=== PATIENT | female | born 1965 | race Caucasian/White ===

== ENCOUNTER 2016-08-18 11:16 | Emergency (ER) | payer OTHER ==
[~2016-08-18 11:16] MED LIST: ASPIRIN ADULT L81 MG PO; AUGMENTIN875 MG PO; B-121000 MCG PO; CEFTIN250 MG PO; CLONAZEPAM0.5 MG PO; CLONAZEPAM1 MG PO; COUMADIN5 MG PO; CYMBALTA30 MG PO; DILAUDID2 MG PO; GABAPENTIN600 MG PO; KEPPRA500 MG PO; LAMICTAL25 M1 PO; LIPITOR80 MG PO; MAG6464 MG PO; MS CONTIN15 MG PO; NEURONTIN300 MG PO; NUCYNTA50 MG PO; PHENERGAN EQUIV25 MG PO; RANITIDINE ACID75 MG PO; TAMSULOSIN HCL0.4 MG PO; TIZANIDINE HCL4 M1 PO; TOPROL XL50 MG PO; TRAZODONE HCL50 MG PO; VITAMIN B 650 MG PO
--- NOTE | 2016-08-18 12:23 | ED CLINICAL REPORT ---
Clinical Report - Physicians/Mid Levels [address] [place] [address] 08/18/2016 11:17 Patient: MARJAN CATES Time Seen: 1205; initial patient contact, initial documentation, patient care assumed. Arrived- By private vehicle. Historian- patient and friend. HISTORY OF PRESENT ILLNESS Chief Complaint: ( want iv line out). This started about 3 days ago and is still present. No current or associated symptoms. (went to [facility] for some gi procedure, pic or mid iv line placed in R arm, procedure was not done due to vomiting, pt here demanding we take line out, denies any issues with line, just wants it removed). Similar symptoms previously: None. Recent medical care: The patient was seen recently at another facility in the office. REVIEW OF SYSTEMS No fever. All systems otherwise negative, except as recorded above. PAST HISTORY See nurses notes. PROBLEMS: CVA - Cerebrovascular Accident. Seizure. Changed Mental Status. Diabetes Mellitus. Seizure Disorder. Dental Pain. Dental Caries. Abscess. Strep Throat. UTI - Urinary Tract Infection. Migraine Headache. Intracranial Mass. Folliculitis. [place]. Fall. Contusion. Rib Fracture. Tetanus Status. Pulmonary Embolism. Headache. Neurogenic bladder. LNMP - Last Normal Menstrual Period. Chest Pain. Abnormal EKG. Immunizations. Endometriosis. Fibromyalgia. Neuropathy. Diabetes Mellitus Type 2. TIA - Transient Ischemic Attack. Endocarditis. --11:51 Amy Hussein R.N. CVA - Cerebrovascular Accident [RuleOut]. Angina [RuleOut]. Acute Myocardial Infarction [RuleOut]. --11:51 Amy Hussein R.N. SOCIAL HISTORY Heavy tobacco smoker. History of heavy drug use: marijuana. No alcohol use. No recent travel. Is a local resident. FAMILY HISTORY Negative. ADDITIONAL NOTES The nursing notes have been reviewed with agreement regarding the chief complaint, HPI, ROS, PMH and patient medications and allergies. PHYSICAL EXAM Vital Signs: 08/18/2016 11:44 BP: 116/83. HR: 96. RR: 18. O2 saturation: 100%. Temp: 98.9 F. Have been reviewed as normal and appear to be correct. Appearance: Alert. No acute distress. Eyes: Pupils equal, round and reactive to light. Eyes normal inspection. Neck: Normal inspection. Neck supple. Respiratory: No respiratory distress. Back: Normal inspection. Skin: Skin warm and dry. Normal skin color. No rash. Normal skin turgor. Extremities: Extremities exhibit normal ROM. No lower extremity edema. (mid/pic iv line in R upper arm, site clear, no swelling, no warmth, no erythema). Neuro: Oriented X 3. No motor deficit. No sensory deficit. PROGRESS AND PROCEDURES Course of Care: had discussion with pt re importance of f/u with previous dr at [facility], to have line removed, if needed/wanted, pt not happy, demanding we remove line, and stated she got dressed, came here because we were closer and she wants it out 1248. ELIE Leroy reporting pt upset over dc and demanding line be removed 1258. Spoke to Dr. Engel, custom decorating consultant for GI at [facility], who was also dr that pt had procedure with, pt came in [facility] for pic line placement for colonscopy on Sat, pt was then a no show for her colonscopy, pt was supposed to return later that day to have line removed, pt was no show as well, pt has made no arrangements to have test rescheduled, so Dr. Engel would prefer line to be removed today if we are ok with taking it out, agreed to remove it ELIE Chaves aware and ok to removed line, agreed to send tip for cx if needed 1325. pt now requesting rx pain meds for her leg pain 1340. another nurse now discharging pt, and pt still wants rx pain meds, request denied, but agreed to give one pill here. Patient counseled in person regarding the patient's stable condition and diagnosis. 12:23. Differential Diagnosis: Other possible considerations: infected iv line, cellulitis, noncompliance, substance abuse, sepsis, normal exam. Above considerations are based on history and physical exam. Differential diagnosis was discussed with patient. Disposition: Discharged home in good and unchanged condition. Condition: good and stable. CLINICAL IMPRESSION Normal exam upon presentation, while in the ED and at discharge. PIC line removal. INSTRUCTIONS Warnings: GENERAL WARNINGS: Return or contact your physician immediately if your condition worsens or changes unexpectedly, if not improving as expected, or if other problems arise. Specifically return if problem worsens. Follow-up: Follow up with your doctor in about two days even if well. Call for an appointment. Summary of care provided to patient. Understanding of the discharge instructions verbalized by patient. (Electronically signed by Emerald Salcedo A.R.N.P. 08/18/2016 19:14)
--- NOTE | 2016-08-18 12:23 | ED CLINICAL REPORT ---
Clinical Report - Physicians/Mid Levels [facility] [address] [place] [address] 08/18/2016 11:17 Patient: MARJAN CATES Time Seen: 1205; initial patient contact, initial documentation, patient care assumed. Arrived- By private vehicle. Historian- patient and friend. HISTORY OF PRESENT ILLNESS Chief Complaint: ( want iv line out). This started about 3 days ago and is still present. No current or associated symptoms. (went to [facility] for some gi procedure, pic or mid iv line placed in R arm, procedure was not done due to vomiting, pt here demanding we take line out, denies any issues with line, just wants it removed). Similar symptoms previously: None. Recent medical care: The patient was seen recently at another facility in the office. REVIEW OF SYSTEMS No fever. All systems otherwise negative, except as recorded above. PAST HISTORY See nurses notes. PROBLEMS: CVA - Cerebrovascular Accident. Seizure. Changed Mental Status. Diabetes Mellitus. Seizure Disorder. Dental Pain. Dental Caries. Abscess. Strep Throat. UTI - Urinary Tract Infection. Migraine Headache. Intracranial Mass. Folliculitis. [place]. Fall. Contusion. Rib Fracture. Tetanus Status. Pulmonary Embolism. Headache. Neurogenic bladder. LNMP - Last Normal Menstrual Period. Chest Pain. Abnormal EKG. Immunizations. Endometriosis. Fibromyalgia. Neuropathy. Diabetes Mellitus Type 2. TIA - Transient Ischemic Attack. Endocarditis. --11:51 Amy Hussein R.N. CVA - Cerebrovascular Accident [RuleOut]. Angina [RuleOut]. Acute Myocardial Infarction [RuleOut]. --11:51 Amy Hussein R.N. SOCIAL HISTORY Heavy tobacco smoker. History of heavy drug use: marijuana. No alcohol use. No recent travel. Is a local resident. FAMILY HISTORY Negative. ADDITIONAL NOTES The nursing notes have been reviewed with agreement regarding the chief complaint, HPI, ROS, PMH and patient medications and allergies. PHYSICAL EXAM Vital Signs: 08/18/2016 11:44 BP: 116/83. HR: 96. RR: 18. O2 saturation: 100%. Temp: 98.9 F. Have been reviewed as normal and appear to be correct. Appearance: Alert. No acute distress. Eyes: Pupils equal, round and reactive to light. Eyes normal inspection. Neck: Normal inspection. Neck supple. Respiratory: No respiratory distress. Back: Normal inspection. Skin: Skin warm and dry. Normal skin color. No rash. Normal skin turgor. Extremities: Extremities exhibit normal ROM. No lower extremity edema. (mid/pic iv line in R upper arm, site clear, no swelling, no warmth, no erythema). Neuro: Oriented X 3. No motor deficit. No sensory deficit. PROGRESS AND PROCEDURES Course of Care: had discussion with pt re importance of f/u with previous dr at [facility], to have line removed, if needed/wanted, pt not happy, demanding we remove line, and stated she got dressed, came here because we were closer and she wants it out 1248. ELIE Leroy reporting pt upset over dc and demanding line be removed 1258. Spoke to Dr. Engel, credit collections specialist for GI at [facility], who was also dr that pt had procedure with, pt came in [facility] for pic line placement for colonscopy on Sat, pt was then a no show for her colonscopy, pt was supposed to return later that day to have line removed, pt was no show as well, pt has made no arrangements to have test rescheduled, so Dr. Engel would prefer line to be removed today if we are ok with taking it out, agreed to remove it ELIE Chaves aware and ok to removed line, agreed to send tip for cx if needed 1325. pt now requesting rx pain meds for her leg pain 1340. another nurse now discharging pt, and pt still wants rx pain meds, request denied, but agreed to give one pill here. Patient counseled in person regarding the patient's stable condition and diagnosis. 12:23. Differential Diagnosis: Other possible considerations: infected iv line, cellulitis, noncompliance, substance abuse, sepsis, normal exam. Above considerations are based on history and physical exam. Differential diagnosis was discussed with patient. Disposition: Discharged home in good and unchanged condition. Condition: good and stable. CLINICAL IMPRESSION Normal exam upon presentation, while in the ED and at discharge. PIC line removal. INSTRUCTIONS Warnings: GENERAL WARNINGS: Return or contact your physician immediately if your condition worsens or changes unexpectedly, if not improving as expected, or if other problems arise. Specifically return if problem worsens. Follow-up: Follow up with your doctor in about two days even if well. Call for an appointment. Summary of care provided to patient. Understanding of the discharge instructions verbalized by patient. (Electronically signed by Emerald Salcedo A.R.N.P. 08/18/2016 19:14)
--- NOTE | 2016-08-18 12:24 | ED NURSING NOTES ---
Clinical Report - Nurses [facility] [address] [place] [address] 08/18/2016 11:17 Patient: MARJAN CATES TRIAGE Triage time 11:44 Aug 18 2016. Acuity: LEVEL 3. Chief Complaint: (Patient need midline cath removed.). CHRIS COMA SCORE: [place] Coma Scale: 15- eyes open spontaneously (4); best verbal response- oriented x 4 (5); best motor response- obeys commands (6). --11:54 Amy Hussein R.N. 11:44 08/18/16. BP: 116/83. HR: 96. RR: 18. O2 saturation: 100%. Temp: 98.9 F. Pain level now 8/10. --11:54 Amy Hussein R.N. Weight: 62.5 kg stated. Height/Length: 62 inches Per Patient. BMI: 25.2. --11:53 Amy Hussein R.N. Medications Asa 81mg day. Atorvastatin Calcium Oral 80 mg, at bedtime. Botox Injection, q 3 months . ClonazePAM Oral 1 mg, 3x a day. Cymbalta Oral 60mg day. Gabapentin Oral 1200, 2x a day. LamoTRIgine Oral (Tablet Dispersible 100 mg) 1 tablet, bid. Lasix 40mg daily prn swelling. Oxybutynin Chloride Oral 5 mg, 3x a day. Promethazine HCl Oral 12.5 mg, 4x a day as needed. Ranitidine HCl Oral 150 mg, 2x a day. TiZANidine HCl Oral 4 mg, 2x a day. TraZODone HCl Oral (Tablet 150 mg) 1 tablet, at bedtime. Vitmichel, b-12/ b-6/ . --11:50 Amy Hussein R.N. Allergies Albuterol. Allergen. Codeine. Morphine and Related. Prochlorperazine. Zofran. --11:50 Amy Hussein R.N. History Arrived by private vehicle. Historian: patient. Accompanied by friend. Location: (right arm). She has had no complaints since the treatment. Previous treatment: Previously seen in ED at another facility. ( Patient had line placed in [place] for a GI study and patient didn't get the study done because she started throwing up when taking the prep.). SOCIAL HX: Current every day smoker (states quit two days ago). History of drug use: marijuana. No alcohol use. No infectious disease exposure. SELF HARM ASSESSMENT: A self harm assessment was performed. The patient answered "no" to the question "Have you recently felt down, depressed, or hopeless?" and "Do you have thoughts of harming or killing yourself?". NUTRITIONAL RISK ASSESSMENT: The nutritional risk assessment revealed no deficiencies. FUNCTIONAL ASSESSMENT: Functional assessment: no impairments noted. LEARNING NEEDS ASSESSMENT: The learning needs assessment revealed no barriers. ABUSE ASSESSMENT: Abuse assessment: (yes) The patient was asked "Do you feel safe in your home?". SKIN INTEGRITY ASSESSMENT: Skin integrity risk assessment completed. No skin integrity risk identified. --11:54 Amy Hussein R.N. PROBLEMS: CVA - Cerebrovascular Accident. Seizure. Changed Mental Status. Diabetes Mellitus. Seizure Disorder. Dental Pain. Dental Caries. Abscess. Strep Throat. UTI - Urinary Tract Infection. Migraine Headache. Intracranial Mass. Folliculitis. [place]. Fall. Contusion. Rib Fracture. Tetanus Status. Pulmonary Embolism. Headache. Neurogenic bladder. LNMP - Last Normal Menstrual Period. Chest Pain. Abnormal EKG. Immunizations. Endometriosis. Fibromyalgia. Neuropathy. Diabetes Mellitus Type 2. TIA - Transient Ischemic Attack. Endocarditis. --11:51 Amy Hussein R.N. CVA - Cerebrovascular Accident [RuleOut]. Angina [RuleOut]. Acute Myocardial Infarction [RuleOut]. --11:51 Amy Hussein R.N. Interventions ID and allergy band on patient. --11:54 Amy Hussein R.N. PHYSICAL ASSESSMENT To room via wheelchair. GENERAL / NEURO / PSYCH: Alert. Oriented X 4. Appears in no acute distress. Patient's nutrition appears within normal limits. EXTREMITIES: Extremity pulses are within normal limits. Capillary refill is less than 2 seconds in the extremities. Sensation intact in extremities. ROM of extremities within normal limits. ( Patient has old injury from previous stroke). SKIN: Skin is warm and dry. No signs or symptoms of infection. --11:55 Amy Hussein R.N. ( Patient needs midline cath. removed no staple or sutures.). --11:55 Amy Hussein R.N. NURSING PROGRESS NOTES The plan of care for this patient has been created. Reassurance given. Call light placed in reach. Side rails up x 2. Bed placed in lowest position. Brakes of bed on. --11:56 Amy Hussein R.N. late entry -13:10. ( Midline IV catheter removed per order. Tip is intact, no inflammation or sign of infx.). --13:19 Anastacio Soto R.N. DISPOSITION / DISCHARGE Departure time: 1339. Condition at departure: improved. Discharge instructions provided and reviewed with dry end tester and the patient. Reviewed referral to family practice for followup. Verbalized understanding. Written instructions provided. The patient was discharged home and accompanied by dry end tester. She left the Emergency Department ambulatory and via private vehicle. --14:39 Mariaa Phoenix R.N. 13:35 08/18/16. RR: 18. Additional comments: Pt refused vital signs. --14:39 Mariaa Phoenix R.N. 13:39. ( Pt asked for prescription or medication for her pain, SALON MANAGER declined to give pt anything.). --14:41 Mariaa Phoenix R.N. Locked/Released at 08/18/2016 14:45 by Mariaa Phoenix R.N.
--- NOTE | 2016-08-18 12:24 | ED NURSING NOTES ---
Clinical Report - Nurses [facility] [address] [place] [address] 08/18/2016 11:17 Patient: MARJAN CATES TRIAGE Triage time 11:44 Aug 18 2016. Acuity: LEVEL 3. Chief Complaint: (Patient need midline cath removed.). CHRIS COMA SCORE: [place] Coma Scale: 15- eyes open spontaneously (4); best verbal response- oriented x 4 (5); best motor response- obeys commands (6). --11:54 Amy Hussein R.N. 11:44 08/18/16. BP: 116/83. HR: 96. RR: 18. O2 saturation: 100%. Temp: 98.9 F. Pain level now 8/10. --11:54 Amy Hussein R.N. Weight: 62.5 kg stated. Height/Length: 62 inches Per Patient. BMI: 25.2. --11:53 Amy Hussein R.N. Medications Asa 81mg day. Atorvastatin Calcium Oral 80 mg, at bedtime. Botox Injection, q 3 months . ClonazePAM Oral 1 mg, 3x a day. Cymbalta Oral 60mg day. Gabapentin Oral 1200, 2x a day. LamoTRIgine Oral (Tablet Dispersible 100 mg) 1 tablet, bid. Lasix 40mg daily prn swelling. Oxybutynin Chloride Oral 5 mg, 3x a day. Promethazine HCl Oral 12.5 mg, 4x a day as needed. Ranitidine HCl Oral 150 mg, 2x a day. TiZANidine HCl Oral 4 mg, 2x a day. TraZODone HCl Oral (Tablet 150 mg) 1 tablet, at bedtime. Vitmichel, b-12/ b-6/ . --11:50 Amy Hussein R.N. Allergies Albuterol. Allergen. Codeine. Morphine and Related. Prochlorperazine. Zofran. --11:50 Amy Hussein R.N. History Arrived by private vehicle. Historian: patient. Accompanied by friend. Location: (right arm). She has had no complaints since the treatment. Previous treatment: Previously seen in ED at another facility. ( Patient had line placed in [place] for a GI study and patient didn't get the study done because she started throwing up when taking the prep.). SOCIAL HX: Current every day smoker (states quit two days ago). History of drug use: marijuana. No alcohol use. No infectious disease exposure. SELF HARM ASSESSMENT: A self harm assessment was performed. The patient answered "no" to the question "Have you recently felt down, depressed, or hopeless?" and "Do you have thoughts of harming or killing yourself?". NUTRITIONAL RISK ASSESSMENT: The nutritional risk assessment revealed no deficiencies. FUNCTIONAL ASSESSMENT: Functional assessment: no impairments noted. LEARNING NEEDS ASSESSMENT: The learning needs assessment revealed no barriers. ABUSE ASSESSMENT: Abuse assessment: (yes) The patient was asked "Do you feel safe in your home?". SKIN INTEGRITY ASSESSMENT: Skin integrity risk assessment completed. No skin integrity risk identified. --11:54 Amy Hussein R.N. PROBLEMS: CVA - Cerebrovascular Accident. Seizure. Changed Mental Status. Diabetes Mellitus. Seizure Disorder. Dental Pain. Dental Caries. Abscess. Strep Throat. UTI - Urinary Tract Infection. Migraine Headache. Intracranial Mass. Folliculitis. [place]. Fall. Contusion. Rib Fracture. Tetanus Status. Pulmonary Embolism. Headache. Neurogenic bladder. LNMP - Last Normal Menstrual Period. Chest Pain. Abnormal EKG. Immunizations. Endometriosis. Fibromyalgia. Neuropathy. Diabetes Mellitus Type 2. TIA - Transient Ischemic Attack. Endocarditis. --11:51 Amy Hussein R.N. CVA - Cerebrovascular Accident [RuleOut]. Angina [RuleOut]. Acute Myocardial Infarction [RuleOut]. --11:51 Amy Hussein R.N. Interventions ID and allergy band on patient. --11:54 Amy Hussein R.N. PHYSICAL ASSESSMENT To room via wheelchair. GENERAL / NEURO / PSYCH: Alert. Oriented X 4. Appears in no acute distress. Patient's nutrition appears within normal limits. EXTREMITIES: Extremity pulses are within normal limits. Capillary refill is less than 2 seconds in the extremities. Sensation intact in extremities. ROM of extremities within normal limits. ( Patient has old injury from previous stroke). SKIN: Skin is warm and dry. No signs or symptoms of infection. --11:55 Amy Hussein R.N. ( Patient needs midline cath. removed no staple or sutures.). --11:55 Amy Hussein R.N. NURSING PROGRESS NOTES The plan of care for this patient has been created. Reassurance given. Call light placed in reach. Side rails up x 2. Bed placed in lowest position. Brakes of bed on. --11:56 Amy Hussein R.N. late entry -13:10. ( Midline IV catheter removed per order. Tip is intact, no inflammation or sign of infx.). --13:19 Anastacio Soto R.N. DISPOSITION / DISCHARGE Departure time: 1339. Condition at departure: improved. Discharge instructions provided and reviewed with [place] police sergeant and the patient. Reviewed referral to family practice for followup. Verbalized understanding. Written instructions provided. The patient was discharged home and accompanied by precinct [place] police sergeant. She left the Emergency Department ambulatory and via private vehicle. --14:39 Mariaa Phoenix R.N. 13:35 08/18/16. RR: 18. Additional comments: Pt refused vital signs. --14:39 Mariaa Phoenix R.N. 13:39. ( Pt asked for prescription or medication for her pain, NAIL MAKING MACHINE SETTER declined to give pt anything.). --14:41 Mariaa Phoenix R.N. Locked/Released at 08/18/2016 14:45 by Mariaa Phoenix R.N.
--- NOTE | 2016-08-18 19:15 | ED DISCHARGE INSTRUCTIONS ---
Patient: MARJAN CATES General Instructions [facility] VisitID: [id number] [address] [place] [address] 51y, F Registration Date/Time: 08/18/2016 Normal exam upon presentation, while in the ED and at discharge. PIC line removal. INSTRUCTIONS Warnings: GENERAL WARNINGS: Return or contact your physician immediately if your condition worsens or changes unexpectedly, if not improving as expected, or if other problems arise. Specifically return if problem worsens. Follow-up: Follow up with your doctor in about two days even if well. Call for an appointment. Summary of care provided to patient. Understanding of the discharge instructions verbalized by patient. ADDITIONAL INFORMATION Normal Exam [6Yr - Adult] Based on your or your child's exam today, there are no signs of illness or injury. Be assured that the symptoms that worried you are normal. They do not suggest any illness requiring testing or treatment at this time. Home Care: You (or your child) can return to normal activities and diet. If you or your child have new or unusual symptoms not already discussed today, contact the doctor. Follow Up with the doctor for the next routine appointment. For more information: For childrens health information: www.kidshealth.org For adult health information: www.[facility].org You have been given the following additional information: Normal Exam, (Child) (Adult) (Electronically signed by Emerald Salcedo A.R.N.P. 08/18/2016 19:14)
--- NOTE | 2016-08-18 19:15 | ED MED RECONCILIATION SUMMARY ---
Patient: MARJAN CATES Medication Reconciliation Report [facility] VisitID: [id number] [address] [place] [address] 51y, F Registration Date/Time: 08/18/2016 Weight: 62.5 kg Height/Length: 62 in. BMI: 25.2 ALLERGIES: Albuterol, Allergen, Codeine, Morphine and Related, Prochlorperazine, Zofran The patient's Home Medications are listed below: THE FOLLOWING MEDICATIONS NEED TO BE RECONCILED: Asa 81mg day Atorvastatin Calcium Oral 80 mg, at bedtime Botox Injection, q 3 months ClonazePAM Oral 1 mg, 3x a day Cymbalta Oral 60mg day Gabapentin Oral 1200, 2x a day LamoTRIgine Oral (100 mg) 1 tablet, bid Lasix 40mg daily prn swelling Oxybutynin Chloride Oral 5 mg, 3x a day Promethazine HCl Oral 12.5 mg, 4x a day Ranitidine HCl Oral 150 mg, 2x a day TiZANidine HCl Oral 4 mg, 2x a day TraZODone HCl Oral (150 mg) 1 tablet, at bedtime Vits, b-12/ b-6/ The source(s) of the original Home Medication information: Not obtained. The following Medications were given to the patient in the Emergency Department: None. The following Medications were prescribed to the patient: None.
--- NOTE | 2016-08-18 19:15 | ED DISCHARGE INSTRUCTIONS ---
Patient: MARJAN CATES General Instructions [facility] VisitID: [id number] [address] [place] [address] 51y, F Registration Date/Time: 08/18/2016 Normal exam upon presentation, while in the ED and at discharge. PIC line removal. INSTRUCTIONS Warnings: GENERAL WARNINGS: Return or contact your physician immediately if your condition worsens or changes unexpectedly, if not improving as expected, or if other problems arise. Specifically return if problem worsens. Follow-up: Follow up with your doctor in about two days even if well. Call for an appointment. Summary of care provided to patient. Understanding of the discharge instructions verbalized by patient. ADDITIONAL INFORMATION Normal Exam [6Yr - Adult] Based on your or your child's exam today, there are no signs of illness or injury. Be assured that the symptoms that worried you are normal. They do not suggest any illness requiring testing or treatment at this time. Home Care: You (or your child) can return to normal activities and diet. If you or your child have new or unusual symptoms not already discussed today, contact the doctor. Follow Up with the doctor for the next routine appointment. For more information: For childrens health information: www.kidshealth.org For adult health information: www.[facility].org You have been given the following additional information: Normal Exam, (Child) (Adult) (Electronically signed by Emerald Salcedo A.R.N.P. 08/18/2016 19:14)
--- NOTE | 2016-08-18 19:15 | ED ORDER SUMMARY ---
..... Patient: MARJAN CATES OrderSheet [facility] VisitID: [id number] [address] [place] [address] 51y, F Registration Date/Time: 08/18/2016 ORDER SHEET Weight: 62.5 kg (stated) Allergies: Albuterol, Allergen, Codeine, Morphine and Related, Prochlorperazine, Zofran GENERAL ORDERS: - (remove pic line) (13:05 08/18/2016 HBivens A.R.N.P.) (13:15 Amber R.N.) MEDICATION ORDERS: Hydrocodone-APAP PO 5/325 mg (NOW, HIGH ALERT MEDICATION) (13:43 08/18/2016 HBivens A.R.N.P.) (Cancelled: Patient Left14:44 Francesco R.N.) IV FLUIDS: ORDER SHEET NOTES: [Electronically signed by Mariaa Phoenix R.N. (14:45 08/18/2016)] [Electronically signed by Emerald SalcedoR.N.P. (19:14 08/18/2016)] [Electronically locked/signed by Mariaa Phoenix R.N. (14:45 08/18/2016)]
--- NOTE | 2016-08-18 19:15 | ED MAR SUMMARY ---
..... Medication Administration Record [facility] [address] [place], [place] [id number] Patient: MARJAN CATES Visit ID: [id number] 51y, F Weight: 62.5 kg Height/Length: 62 in BMI: 25.2 ALLERGIES: Albuterol, Allergen, Codeine, Morphine and Related, Prochlorperazine, Zofran
--- NOTE | 2016-08-18 19:15 | ED MED RECONCILIATION SUMMARY ---
Patient: MARJAN CATES Medication Reconciliation Report [facility] VisitID: [id number] [address] [place] [address] 51y, F Registration Date/Time: 08/18/2016 Weight: 62.5 kg Height/Length: 62 in. BMI: 25.2 ALLERGIES: Albuterol, Allergen, Codeine, Morphine and Related, Prochlorperazine, Zofran The patient's Home Medications are listed below: THE FOLLOWING MEDICATIONS NEED TO BE RECONCILED: Asa 81mg day Atorvastatin Calcium Oral 80 mg, at bedtime Botox Injection, q 3 months ClonazePAM Oral 1 mg, 3x a day Cymbalta Oral 60mg day Gabapentin Oral 1200, 2x a day LamoTRIgine Oral (100 mg) 1 tablet, bid Lasix 40mg daily prn swelling Oxybutynin Chloride Oral 5 mg, 3x a day Promethazine HCl Oral 12.5 mg, 4x a day Ranitidine HCl Oral 150 mg, 2x a day TiZANidine HCl Oral 4 mg, 2x a day TraZODone HCl Oral (150 mg) 1 tablet, at bedtime Vits, b-12/ b-6/ The source(s) of the original Home Medication information: Not obtained. The following Medications were given to the patient in the Emergency Department: None. The following Medications were prescribed to the patient: None.
--- NOTE | 2016-08-18 19:15 | ED MAR SUMMARY ---
..... Medication Administration Record [facility] [address] [place], [place] [id number] Patient: MARJAN CATES Visit ID: [id number] 51y, F Weight: 62.5 kg Height/Length: 62 in BMI: 25.2 ALLERGIES: Albuterol, Allergen, Codeine, Morphine and Related, Prochlorperazine, Zofran
--- NOTE | 2016-08-18 19:15 | ED ORDER SUMMARY ---
..... Patient: MARJAN CATES OrderSheet [facility] VisitID: [id number] [address] [place] [address] 51y, F Registration Date/Time: 08/18/2016 ORDER SHEET Weight: 62.5 kg (stated) Allergies: Albuterol, Allergen, Codeine, Morphine and Related, Prochlorperazine, Zofran GENERAL ORDERS: - (remove pic line) (13:05 08/18/2016 HBivens A.R.N.P.) (13:15 Amber R.N.) MEDICATION ORDERS: Hydrocodone-APAP PO 5/325 mg (NOW, HIGH ALERT MEDICATION) (13:43 08/18/2016 HBivens A.R.N.P.) (Cancelled: Patient Left14:44 Francesco R.N.) IV FLUIDS: ORDER SHEET NOTES: [Electronically signed by Mariaa Phoenix R.N. (14:45 08/18/2016)] [Electronically signed by Emerald SalcedoR.N.P. (19:14 08/18/2016)] [Electronically locked/signed by Mariaa Phoenix R.N. (14:45 08/18/2016)]
== END 2016-08-18 13:40 | disposition home or self-care (01) ==
LOC: ED SRH 11:16
DX: Z45.2 Encounter for adjustment and management of vascular access device (principal); M79.621 Pain in right upper arm; F17.210 Nicotine dependence, cigarettes, uncomplicated; Z86.73 Personal history of transient ischemic attack (TIA), and cerebral infarction without residual deficits; E11.9 Type 2 diabetes mellitus without complications

== ENCOUNTER 2016-12-13 16:21 | Observation (INO) | payer OTHER ==
[~2016-12-13] VITALS: Ht 158.8 cm; Wt 67.6 kg
--- NOTE | 2016-12-13 18:02 | DIAGNOSTIC IMAGING REPORT ---
PROCEDURE: XR CHEST 1 VIEW INDICATION: CHEST PAIN TECHNIQUE: Portable AP view (1730 hours). COMPARISON: Compared to chest x-ray on 07/10/2016. FINDINGS: Status post median sternotomy with aortic and mitral valve prosthesis. Heart and mediastinum are normal size. Lungs are clear. Thorax is normal. IMPRESSION: 1. Status post aortic and mitral valve prostheses. 2. Otherwise negative chest.
--- NOTE | 2016-12-13 19:27 | ED CLINICAL REPORT ---
Clinical Report - Physicians/Mid Levels [facility] [address] [place] [address] 12/13/2016 16:21 Patient: MARJAN CATES Time Seen: 16:30. Arrived- By private vehicle. Historian- patient. HISTORY OF PRESENT ILLNESS Chief Complaint: CHEST PAIN. It is described as aching and sharp and it is described as located in other area (lower central chest pain) and the epigastric area. This started at about 1600; Epigastric with radiation to back. lasted 20- 30 minutes. and is still present. It was abrupt in onset. At its maximum, severity described as 8 / 10. When seen in the E.D., severity described as 7 / 10. Modifying factors- worsened by deep breaths. (worse with palpation.). Not relieved by nitroglycerin. The patient has had difficulty breathing and nausea and has experienced diaphoresis. No vomiting. Similar symptoms previously: None. REVIEW OF SYSTEMS No fever, chills, cough, pedal edema or chills. No fever, sore throat, cough, black stools or diarrhea. No nausea, vomiting or skin rash. She has had chest pain, difficulty breathing and abdominal pain. The pain is described as located in the upper abdomen. PAST HISTORY PCP: Dr Mesa - Illness: DVT, Brain Lesion, SBE, Aortic and Mitral valve, DM, Migraine MCKEON, CVA, neurogenic bladder. PROBLEMS: Normal Exam. CVA - Cerebrovascular Accident. Seizure. Changed Mental Status. Diabetes Mellitus. Seizure Disorder. Dental Pain. Dental Caries. Abscess. Strep Throat. UTI - Urinary Tract Infection. Migraine Headache. Intracranial Mass. Folliculitis. [place]. Fall. Contusion. Rib Fracture. Tetanus Status. Pulmonary Embolism. Headache. Neurogenic bladder. Chest Pain. Abnormal EKG. Immunizations. Endometriosis. Fibromyalgia. Neuropathy. Diabetes Mellitus Type 2. TIA - Transient Ischemic Attack. Endocarditis. ADDITIONAL SURGERIES: Aortic valve replacement. Appendectomy. Cholecystectomy. Craniotomy. . Laparoscopy. Mitral valvuloplasty. Medications: Asa 81mg day. Atorvastatin Calcium Oral 80 mg, at bedtime. Botox Injection, q 3 months . ClonazePAM Oral 1 mg, 3x a day. Cymbalta Oral 60mg day. Gabapentin Oral 1200, 2x a day. LamoTRIgine Oral (Tablet Dispersible 100 mg) 1 tablet, bid. Lasix 40mg daily prn swelling. Oxybutynin Chloride Oral 5 mg, 3x a day. Promethazine HCl Oral 12.5 mg, 4x a day as needed. Ranitidine HCl Oral 150 mg, 2x a day. TiZANidine HCl Oral 4 mg, 2x a day. TraZODone HCl Oral (Tablet 150 mg) 1 tablet, at bedtime. Vits, b-12/ b-6/ . Allergies: Albuterol. Allergen. Codeine. Morphine and Related. Prochlorperazine. Zofran. SOCIAL HISTORY Current every day smoker. PHYSICAL EXAM Vital Signs: 12/13/2016 21:03 BP: 98/58. HR: 83. RR: 14. O2 saturation: 98%. Temp: 97.8 F. Pain level now: 03/24. 12/13/2016 20:50 BP: 97/63. HR: 82. RR: 16. O2 saturation: 98%. Pain level now: 03/24. 12/13/2016 20:14 BP: 106/70. HR: 84. RR: 18. O2 saturation: 98%. Pain level now: 02/21. 12/13/2016 20:01 BP: 106/70. HR: 83. RR: 16. O2 saturation: 97%. Pain level now: 02/21. 12/13/2016 19:27 BP: 99/77. HR: 86. RR: 16. O2 saturation: 97%. Pain level now: 02/21. 12/13/2016 17:30 BP: 101/78. HR: 96. RR: 18. O2 saturation: 96%. Pain level now: 12/22. 12/13/2016 17:00 BP: 113/82. HR: 97. RR: 16. O2 saturation: 96%. Pain level now: 12/22. 12/13/2016 16:39 BP: 102/75. HR: 97. RR: 16. O2 saturation: 96%. Temp: 97.9 F. Pain level now: 02/21. Appearance: Alert. (Slow speech). Eyes: No conjunctival findings or scleral icterus. ENT: Pharynx normal. CVS: Heart sounds normal. Respiratory: No respiratory distress. Chest pain reproducible (chest wall tenderness). Breath sounds normal. No decreased air movement, rales, rhonchi or wheezes. Abdomen: Soft and nontender. Bowel sounds normal. Skin: Skin warm. Normal skin color. Extremities: Extremities exhibit normal ROM. No lower extremity edema. Neuro: No cranial nerve deficit. She has had weakness of the left arm (moderate) and left leg (moderate), (pt states that this is old.). No left facial weakness. No sensory deficit. LABS, X-RAYS, AND EKG EKG: Rate: 98. Normal P waves. Normal MILY. Normal QRS complex. Normal axis. Non-specific ST segment / T wave abnormalities. EKG #2: No acute process. No acute ischemia. The study has been independently viewed by me. Chest X-ray: (PROCEDURE: XR CHEST 1 VIEW INDICATION: CHEST PAIN TECHNIQUE: Portable AP view (1730 hours). COMPARISON: Compared to chest x-ray on 07/10/2016. FINDINGS: Status post median sternotomy with aortic and mitral valve prosthesis. Heart and mediastinum are normal size. Lungs are clear. Thorax is normal. IMPRESSION: 1. Status post aortic and mitral valve prostheses. 2. Otherwise negative chest. Electronically Final signed by:Micheal Ayala MD 12/13/2016 5:57:28 PM Technologist: DANIELLE). Laboratory Tests: CBC w Diff: (PARIS: 12/13/2016 17:45) ( MsgRcvd 12/13/2016 18:38) Final results Test Result Flag Units (Reference) WHITE BLOOD COUNT 5.2 K/uL (4.5-11.5) RED BLOOD COUNT 4.70 M/uL (4.00-5.20) HEMOGLOBIN 12.5 gm/dL (12.0-16.0) HEMATOCRIT 37.8 % (36.0-46.0) MEAN CELL VOLUME 80 fL (80-100) MEAN CORPUSCULAR HGB 27 pg (26-34) MEAN CORPUSCULAR HGB CONC 33 g/dL (31-37) RED CELL DISTRIBUTION WIDTH 15.3 H % (11.6-14.8) PLATELET COUNT Test not performed K/uL (150-400) PLATELETS CLUMPED. APPEAR TO BE ADEQUATE IN NUMBER PER SMEARREVIEW. POLY % 60 % (50-75) BAND % 0 % (0-8) LYMPH 35 % (25-40) MONO 4 % (3-14) EOSINOPHIL % 1 % (0-4) BASOPHIL % 0 % (0-2) METAMYELOCYTE % 0 % (0-1) MYELOCYTE 0 % (0-1) OTHER CELL TYPE 0 ANISOCYTOSIS 1+ BNP: (PARIS: 12/13/2016 17:45) ( [facility] 12/13[place] 18:30) Final results Test Result Flag Units (Reference) B-TYPE NATRIURETIC PEPTIDE 65.2 pg/ml (5-100) CHEM 13 PANEL: (PARIS: 12/13/2016 17:45) ( [facility] 12/13/[facility] 18:21) Final results Test Result Flag Units (Reference) GLUCOSE 92 mg/dL (70-110) BUN 9 mg/dL (7-18) CREATININE 0.9 mg/dL (0.6-1.3) Estimated GFR >60 mL/min Estimated GFR- >60 mL/min Note: Persistent reduction over 3 months in eGFR<60 mL/min/1.73 m2 defines CKD. Patients with eGFR values>=60 mL/min/1.73 m2 may also have CKD if evidence ofpersistent proteinuria. Additional information may be foundat www.kidney.org. SODIUM 142 mmol/L (136-145) POTASSIUM 3.9 mmol/L (3.5-5.1) CHLORIDE 103 mmol/L (98-107) CARBON DIOXIDE 28 mmol/L (21-32) CALCIUM 9.4 mg/dL (8.5-10.1) TOTAL PROTEIN 8.4 H g/dL (6.4-8.2) ALBUMIN 4.2 g/dL (3.3-5.0) BILIRUBIN, TOTAL 0.5 mg/dL (0.0-1.0) ALKALINE PHOSPHATASE 137 H U/L (46-116) AST (SGOT) 23 U/L (15-37) ALT (SGPT) 24 U/L (12-78) CPK 122 U/L (24-260) MAGNESIUM 1.9 mg/dL (1.8-2.4) TROPONIN I <0.05 L ng/mL (0.00-1.5) TROPONIN REFERENCE RANGE:<0.1 NEGATIVE0.1-1.5 INDETERMINANT>1.5 POSITIVE . PROGRESS AND PROCEDURES Course of Care: 17:58 12/13/16. Ms Cates is quite complex. She has valvular heart disease, SBE,DVT, CVA. Vascular access is also quite problematic. I will her back joiner's on-call physician to help guide workup, I have set up an intraosseous line should that be necessary, but try for a PICC line to ease workup. We already have blood for diagnostic purposes. 18:26 12/13/16. Two negative EKGs and one negative troponin. 18:45 12/13/16. Dr Murillo will admit. Bedspread Seamer is obtaining an US directed IV. 19:25 12/13/16. Anastacio ED RN was able to get a peripheral IV. Ms Cates had several atypical seizures which were short lived and not treated. She has 2 HOG MAN lesions and a history of a seizure disorder. During her course in ED she had three atypical seizures which consisted of 30-60 seconds of decreased alertness, flexion at waist, knees and elbows. It resolves without a post ictal state 20:59 12/13/16. Patient and friend are strongly advocating for pain and nausea medication. Pt states she can only take promethazine. Small dose ordered as she is somewhat sleepy. Disposition orders written. Disposition: Admitted. CLINICAL IMPRESSION CHEST PAIN ATYPICAL SEIZURES. (Electronically signed by Kojo Dean MD 12/13/2016 22:49)
--- NOTE | 2016-12-13 19:27 | ED CLINICAL REPORT ---
Clinical Report - Physicians/Mid Levels [facility] [address] [place] [address] 12/13/2016 16:21 Patient: MARJAN CATES Time Seen: 16:30. Arrived- By private vehicle. Historian- patient. HISTORY OF PRESENT ILLNESS Chief Complaint: CHEST PAIN. It is described as aching and sharp and it is described as located in other area (lower central chest pain) and the epigastric area. This started at about 1600; Epigastric with radiation to back. lasted 20- 30 minutes. and is still present. It was abrupt in onset. At its maximum, severity described as 8 / 10. When seen in the E.D., severity described as 7 / 10. Modifying factors- worsened by deep breaths. (worse with palpation.). Not relieved by nitroglycerin. The patient has had difficulty breathing and nausea and has experienced diaphoresis. No vomiting. Similar symptoms previously: None. REVIEW OF SYSTEMS No fever, chills, cough, pedal edema or chills. No fever, sore throat, cough, black stools or diarrhea. No nausea, vomiting or skin rash. She has had chest pain, difficulty breathing and abdominal pain. The pain is described as located in the upper abdomen. PAST HISTORY PCP: Dr Mesa - Illness: DVT, Brain Lesion, SBE, Aortic and Mitral valve, DM, Migraine MCKEON, CVA, neurogenic bladder. PROBLEMS: Normal Exam. CVA - Cerebrovascular Accident. Seizure. Changed Mental Status. Diabetes Mellitus. Seizure Disorder. Dental Pain. Dental Caries. Abscess. Strep Throat. UTI - Urinary Tract Infection. Migraine Headache. Intracranial Mass. Folliculitis. [place]. Fall. Contusion. Rib Fracture. Tetanus Status. Pulmonary Embolism. Headache. Neurogenic bladder. Chest Pain. Abnormal EKG. Immunizations. Endometriosis. Fibromyalgia. Neuropathy. Diabetes Mellitus Type 2. TIA - Transient Ischemic Attack. Endocarditis. ADDITIONAL SURGERIES: Aortic valve replacement. Appendectomy. Cholecystectomy. Craniotomy. . Laparoscopy. Mitral valvuloplasty. Medications: Asa 81mg day. Atorvastatin Calcium Oral 80 mg, at bedtime. Botox Injection, q 3 months . ClonazePAM Oral 1 mg, 3x a day. Cymbalta Oral 60mg day. Gabapentin Oral 1200, 2x a day. LamoTRIgine Oral (Tablet Dispersible 100 mg) 1 tablet, bid. Lasix 40mg daily prn swelling. Oxybutynin Chloride Oral 5 mg, 3x a day. Promethazine HCl Oral 12.5 mg, 4x a day as needed. Ranitidine HCl Oral 150 mg, 2x a day. TiZANidine HCl Oral 4 mg, 2x a day. TraZODone HCl Oral (Tablet 150 mg) 1 tablet, at bedtime. Vits, b-12/ b-6/ . Allergies: Albuterol. Allergen. Codeine. Morphine and Related. Prochlorperazine. Zofran. SOCIAL HISTORY Current every day smoker. PHYSICAL EXAM Vital Signs: 12/13/2016 21:03 BP: 98/58. HR: 83. RR: 14. O2 saturation: 98%. Temp: 97.8 F. Pain level now: 03/24. 12/13/2016 20:50 BP: 97/63. HR: 82. RR: 16. O2 saturation: 98%. Pain level now: 03/24. 12/13/2016 20:14 BP: 106/70. HR: 84. RR: 18. O2 saturation: 98%. Pain level now: 02/21. 12/13/2016 20:01 BP: 106/70. HR: 83. RR: 16. O2 saturation: 97%. Pain level now: 02/21. 12/13/2016 19:27 BP: 99/77. HR: 86. RR: 16. O2 saturation: 97%. Pain level now: 02/21. 12/13/2016 17:30 BP: 101/78. HR: 96. RR: 18. O2 saturation: 96%. Pain level now: 12/22. 12/13/2016 17:00 BP: 113/82. HR: 97. RR: 16. O2 saturation: 96%. Pain level now: 12/22. 12/13/2016 16:39 BP: 102/75. HR: 97. RR: 16. O2 saturation: 96%. Temp: 97.9 F. Pain level now: 02/21. Appearance: Alert. (Slow speech). Eyes: No conjunctival findings or scleral icterus. ENT: Pharynx normal. CVS: Heart sounds normal. Respiratory: No respiratory distress. Chest pain reproducible (chest wall tenderness). Breath sounds normal. No decreased air movement, rales, rhonchi or wheezes. Abdomen: Soft and nontender. Bowel sounds normal. Skin: Skin warm. Normal skin color. Extremities: Extremities exhibit normal ROM. No lower extremity edema. Neuro: No cranial nerve deficit. She has had weakness of the left arm (moderate) and left leg (moderate), (pt states that this is old.). No left facial weakness. No sensory deficit. LABS, X-RAYS, AND EKG EKG: Rate: 98. Normal P waves. Normal MILY. Normal QRS complex. Normal axis. Non-specific ST segment / T wave abnormalities. EKG #2: No acute process. No acute ischemia. The study has been independently viewed by me. Chest X-ray: (PROCEDURE: XR CHEST 1 VIEW INDICATION: CHEST PAIN TECHNIQUE: Portable AP view (1730 hours). COMPARISON: Compared to chest x-ray on 07/10/2016. FINDINGS: Status post median sternotomy with aortic and mitral valve prosthesis. Heart and mediastinum are normal size. Lungs are clear. Thorax is normal. IMPRESSION: 1. Status post aortic and mitral valve prostheses. 2. Otherwise negative chest. Electronically Final signed by:Micheal Ayala MD 12/13/2016 5:57:28 PM Technologist: DANIELLE). Laboratory Tests: CBC w Diff: (PARIS: 12/13/2016 17:45) ( MsgRcvd 12/13/2016 18:38) Final results Test Result Flag Units (Reference) WHITE BLOOD COUNT 5.2 K/uL (4.5-11.5) RED BLOOD COUNT 4.70 M/uL (4.00-5.20) HEMOGLOBIN 12.5 gm/dL (12.0-16.0) HEMATOCRIT 37.8 % (36.0-46.0) MEAN CELL VOLUME 80 fL (80-100) MEAN CORPUSCULAR HGB 27 pg (26-34) MEAN CORPUSCULAR HGB CONC 33 g/dL (31-37) RED CELL DISTRIBUTION WIDTH 15.3 H % (11.6-14.8) PLATELET COUNT Test not performed K/uL (150-400) PLATELETS CLUMPED. APPEAR TO BE ADEQUATE IN NUMBER PER SMEARREVIEW. POLY % 60 % (50-75) BAND % 0 % (0-8) LYMPH 35 % (25-40) MONO 4 % (3-14) EOSINOPHIL % 1 % (0-4) BASOPHIL % 0 % (0-2) METAMYELOCYTE % 0 % (0-1) MYELOCYTE 0 % (0-1) OTHER CELL TYPE 0 ANISOCYTOSIS 1+ BNP: (PARIS: 12/13/2016 17:45) ( [facility] [place] 12/13/[place] 18:30) Final results Test Result Flag Units (Reference) B-TYPE NATRIURETIC PEPTIDE 65.2 pg/ml (5-100) CHEM 13 PANEL: (PARIS: 12/13/2016 17:45) ( [facility] [place] 18:21) Final results Test Result Flag Units (Reference) GLUCOSE 92 mg/dL (70-110) BUN 9 mg/dL (7-18) CREATININE 0.9 mg/dL (0.6-1.3) Estimated GFR >60 mL/min Estimated GFR- >60 mL/min Note: Persistent reduction over 3 months in eGFR<60 mL/min/1.73 m2 defines CKD. Patients with eGFR values>=60 mL/min/1.73 m2 may also have CKD if evidence ofpersistent proteinuria. Additional information may be foundat www.kidney.org. SODIUM 142 mmol/L (136-145) POTASSIUM 3.9 mmol/L (3.5-5.1) CHLORIDE 103 mmol/L (98-107) CARBON DIOXIDE 28 mmol/L (21-32) CALCIUM 9.4 mg/dL (8.5-10.1) TOTAL PROTEIN 8.4 H g/dL (6.4-8.2) ALBUMIN 4.2 g/dL (3.3-5.0) BILIRUBIN, TOTAL 0.5 mg/dL (0.0-1.0) ALKALINE PHOSPHATASE 137 H U/L (46-116) AST (SGOT) 23 U/L (15-37) ALT (SGPT) 24 U/L (12-78) CPK 122 U/L (24-260) MAGNESIUM 1.9 mg/dL (1.8-2.4) TROPONIN I <0.05 L ng/mL (0.00-1.5) TROPONIN REFERENCE RANGE:<0.1 NEGATIVE0.1-1.5 INDETERMINANT>1.5 POSITIVE . PROGRESS AND PROCEDURES Course of Care: 17:58 12/13/16. Ms Cates is quite complex. She has valvular heart disease, SBE,DVT, CVA. Vascular access is also quite problematic. I will her translator/interpreter's on-call physician to help guide workup, I have set up an intraosseous line should that be necessary, but try for a PICC line to ease workup. We already have blood for diagnostic purposes. 18:26 12/13/16. Two negative EKGs and one negative troponin. 18:45 12/13/16. Dr Murillo will admit. Tinter Photograph is obtaining an US directed IV. 19:25 12/13/16. Anastacio ED RN was able to get a peripheral IV. Ms Cates had several atypical seizures which were short lived and not treated. She has 2 CAMPGROUND HAND lesions and a history of a seizure disorder. During her course in ED she had three atypical seizures which consisted of 30-60 seconds of decreased alertness, flexion at waist, knees and elbows. It resolves without a post ictal state 20:59 12/13/16. Patient and friend are strongly advocating for pain and nausea medication. Pt states she can only take promethazine. Small dose ordered as she is somewhat sleepy. Disposition orders written. Disposition: Admitted. CLINICAL IMPRESSION CHEST PAIN ATYPICAL SEIZURES. (Electronically signed by Kojo Dean MD 12/13/2016 22:49)
--- NOTE | 2016-12-13 19:27 | ED NURSING NOTES ---
Clinical Report - [facility] [address] [place] [address] 12/13/2016 16:21 Patient: MARJAN CATES TRIAGE Triage time 16:29. Acuity: LEVEL 3. 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 Chest pain is reproducible with palpation. Chest pain improved some after NTG given by medcs.). SEPSIS SCREEN: Sepsis Screen. Negative (no infection suspected/documented). CHRIS COMA SCORE: [place] Coma Scale: 15- eyes open spontaneously (4); best verbal response- oriented x 4 (5); best motor response- obeys commands (6). --17:29 Anastacio Soto R.N. 16:39 12/13/16. BP: 102/75 (regular adult cuff) taken on the left arm, while lying. HR: 97. RR: 16. O2 saturation: 96% on room air. Temp: 97.9 F (oral). Pain level now: 02/21. --17:29 Ansatacio Soto R.N. Weight: 65 kg stated. Height/Length: 62 inches Per Patient. BMI: 26.2. --16:27 Anastacio Soto R.N. Medications Asa 81mg day. Atorvastatin Calcium Oral 80 mg, at bedtime. Botox Injection, q 3 months . ClonazePAM Oral 1 mg, 3x a day. Cymbalta Oral 60mg day. Gabapentin Oral 1200, 2x a day. LamoTRIgine Oral (Tablet Dispersible 100 mg) 1 tablet, bid. Lasix 40mg daily prn swelling. Oxybutynin Chloride Oral 5 mg, 3x a day. Promethazine HCl Oral 12.5 mg, 4x a day as needed. Ranitidine HCl Oral 150 mg, 2x a day. TiZANidine HCl Oral 4 mg, 2x a day. TraZODone HCl Oral (Tablet 150 mg) 1 tablet, at bedtime. Vits, b-12/ b-6/ . --16:32 Simbeck, Anastacio, R.N. Allergies Albuterol. Allergen. Codeine. Morphine and Related. Prochlorperazine. Zofran. --16:32 Anastacio Soto R.N. History Arrived by EMS, and (Medic 46). Historian: EMS and patient. Reports experiencing sweating episodes. No difficulty breathing, nausea or vomiting. Treatment CASH APPLICATION CLERK: (NTG SL, ASA 324mg po, unable to place IV.). SOCIAL HX: No alcohol use or drug use. ABUSE ASSESSMENT: No report of abuse. --17:29 Anastacio Soto R.N. PROBLEMS: Normal Exam. CVA - Cerebrovascular Accident. Seizure. Changed Mental Status. Diabetes Mellitus. Seizure Disorder. Dental Pain. Dental Caries. Abscess. Strep Throat. UTI - Urinary Tract Infection. Migraine Headache. Intracranial Mass. Folliculitis. NE. Fall. Contusion. Rib Fracture. Tetanus Status. Pulmonary Embolism. Headache. Neurogenic bladder. Chest Pain. Abnormal EKG. Immunizations. Endometriosis. Fibromyalgia. Neuropathy. Diabetes Mellitus Type 2. TIA - Transient Ischemic Attack. Endocarditis. --16:32 Anastacio Soto R.N. ADDITIONAL SURGERIES: Aortic valve replacement. Appendectomy. Cholecystectomy. Craniotomy. . Laparoscopy. Mitral valvuloplasty. --16:32 Anastacio Soto R.N. Interventions ID band on patient. To treatment room. --17:29 Anastacio Soto R.N. PHYSICAL ASSESSMENT late entry -16:40. To room via stretcher. GENERAL / NEURO / PSYCH: Alert. Oriented X 4. Appears in pain and anxious. HEENT: Mucous membranes are pink. RESPIRATORY: Respirations not labored. Chest nontender. Breath sounds within normal limits. CVS: Normal sinus rhythm noted. Heart sounds within normal limits. Pulses within normal limits. ( substernal chest pain radiating into her left arm and jaw, pain is reproducible). Capillary refill less than 2 seconds. GI / : Abdomen soft and nontender. EXTREMITIES: No lower extremity edema. SKIN: Skin is warm and dry. Abnormal skin turgor. Skin is non-tender. --17:32 Anastacio Soto R.N. NURSING PROGRESS NOTES late entry -1640. secured entrance monitor, pulse oximeter and NIBP monitor placed on patient; clinical research monitor- Lead II and V1; monitor alarms on. Patient gowned. Head of bed elevated. Two patient identifiers checked. Call light placed in reach. Side rails up x 2. Bed placed in lowest position. Brakes of bed on. Patient ready for evaluation- chart flagged. --18:17 Anastacio Soto R.N. 18:19 12/13/16. EKG time: (1815 PM). EKG was ordered, performed by a tech and shown to the ED physician. --18:19 Albina Ramos 17:00 12/13/16. BP: 113/82. HR: 97. RR: 16. O2 saturation: 96% on room air. Pain level now: 12/22. --18:19 Anastacio Soto R.N. Cardiac rhythm: normal sinus rhythm. --18:19 Anastacio Soto R.N. 17:30 12/13/16. BP: 101/78. HR: 96. RR: 18. O2 saturation: 96% on room air. Pain level now: 12/22. --18:20 Anastacio Soto R.N. late entry -17:30. ( Pt had a petite mal seizure that lasted approx 1 minute, pupils are unequal (left 6mm, right 4mm) not postictal. She was back to her triage baseline afterwards. MD notified.). --18:25 Anastacio Soto R.N. 18:36 12/13/16. ( Seizure pads were placed on bed.). --18:36 Albina Ramos ( Pt had a tonic clonic seizure lasting approx 1 minute, witnessed by RN and MD.). --18:38 Anastacio Soto R.N. Care transferred and report received (Anastacio Solorzano RN). --19:10 Melisa Baron R.N. ( Nurse supp trying to attempt IV access). --19:10 Melisa Baron R.N. 19:20 12/13/2016 Site #1 started via IV in the left antecubital space with an 22g angiocath, with aseptic technique and good blood return; four attempts. Blood drawn: rainbow set. Labeled in the presence of the patient and sent to the lab. Saline lock flushed with 10 mL saline. --19:22 Anastacio Soto R.N. 19:24 12/13/2016 Two (2) unsuccessful IV access attempts of a PIV catheter including the left antecubital space. Applied bandage. --19:24 Barbara Cai R.N. 19:27 12/13/16. BP: 99/77 (regular adult cuff) taken on the right arm. HR: 86 (regular). RR: 16. O2 saturation: 97% on room air. Pain level now: 8/10. Additional comments: left leg. --19:32 Melisa Baron R.N. 19:32 12/13/16. The patient is calm. HEENT: The patient reports left-sided and frontal headache that is moderate in severity and is described as throbbing. RESPIRATORY: No respiratory distress. CVS: The patient reports central chest pain that is mild in severity and described as radiating to the back. Normal sinus rhythm noted. GI / : The patient reports nausea. SKIN: Skin is warm. Skin color within normal limits. ( Friend at patients bedside. Catheter tubing was repositioned on thigh so it was not pulling on urethra.). --19:32 Melisa Baron R.N. 19:57 12/13/2016 Lorazepam (LORazepam) IVP 0.5 mg given over 1 minute(s) via site #1. Allergies verified, confirmed 5 rights and sedative warning given to the patient. IV patency established. IV site checked: no pain, redness, or swelling. IV flushed thoroughly pre- and post-medication administration. IVP given by RN. --19:57 Melisa Baron R.N. 20:12/13/16. ( Patient had another episode, eyes rolled back of head, clinched fists and jaw, leaning forward, feet inward. Then she relaxed, pupils are equal. Patient given warm blanket for comfort). --20:01 Melisa Baron R.N. 20:12/13/16. BP: 106/70 (regular adult cuff) taken on the right arm. HR: 83. RR: 16. O2 saturation: 97% on room air. Pain level now: 8/10. --20:02 Melisa Baron R.N. 20:14 12/13/16. ( Patient was repositioned and given another warm blanket. Breathing is better after reposition.). --20:14 Melisa Baron R.N. 20:14 12/13/16. BP: 106/70 (regular adult cuff) taken on the right arm. HR: 84. RR: 18. O2 saturation: 98% on room air. Pain level now: 02/21. --20:15 Melisa Baron R.N. 20:50 12/13/16. BP: 97/63 (regular adult cuff) taken on the right arm. HR: 82. RR: 16 (regular). O2 saturation: 98% on room air. Pain level now: 03/24. --20:52 Melisa Baron R.N. 20:52 12/13/16. ( Patient still complains of nausea, pain in chest 01/21 and MCKEON 03/24). --20:52 Melisa Baron R.N. 21:14 12/13/2016 Started bag #1 1000 mL IV Fluids IV NS (Saline); at 250 mL/hr over 4 hour(s) via site #1 via IV pump. Allergies verified and confirmed 5 rights. IV patency established. IV site checked: no pain, redness, or swelling. IV flushed thoroughly pre- and post-medication administration. --21:14 Melisa Baron R.N. 21:21 12/13/2016 PROMETHAZINE IVP 6.25 mg given over 1 minute(s) via site #1. Allergies verified and confirmed 5 rights. IV patency established. IV site checked: no pain, redness, or swelling. IV flushed thoroughly pre- and post-medication administration. IVP given by RN. --21:21 Melisa Baron R.N. 21:28 12/13/2016 IV Fluids IV NS Continued: upon transfer at the rate of 250 mL/hr. 950 mL remaining bag #1. IV patency established. IV site checked: no pain, redness, or swelling. IV flushed thoroughly. --21:28 Melisa Baron R.N. 17:15 12/13/16. BP: 113/82 (regular adult cuff) taken on the left arm. HR: 98. RR: 16. O2 saturation: 96% on room air. --23:39 Melisa Baron R.NDelmy 17:45 12/13/16. BP: 101/78 (regular adult cuff) taken on the right arm. HR: 95. RR: 18. O2 saturation: 96% on room air. --23:40 Melisa Baron R.N. 18:00 12/13/16. BP: 107/76 (regular adult cuff) taken on the right arm. HR: 93. RR: 17. O2 saturation: 97%. --23:41 Melisa Baron R.N. 18:15 12/13/16. BP: 110/70 (regular adult cuff) taken on the right arm. HR: 91. RR: 15. O2 saturation: 97% on room air. --23:41 Melisa Baron R.NDelmy 18:30 12/13/16. BP: 105/77. HR: 90. RR: 15. O2 saturation: 98% on room air. --23:42 Melisa Baron R.NDelmy 18:45 12/13/16. HR: 89. RR: 18. O2 saturation: 93% on room air. --23:43 Melisa Baron RDelmyNDelmy 17:00 12/13/16. HR: 87. RR: 14. O2 saturation: 92% on room air. --23:43 Melisa Baron R.N. 19:30 12/13/16. BP: 108/75 (regular adult cuff) taken on the right arm. HR: 86. RR: 13. O2 saturation: 97% on room air. --23:44 Melisa Baron R.NDelmy 19:45 12/13/16. BP: 103/74 (regular adult cuff) taken on the right arm. HR: 84. RR: 13. O2 saturation: 97% on room air. --23:44 Melisa Baron R.NDelmy 20:20 12/13/16. BP: 94/67. HR: 85. RR: 18. O2 saturation: 98% on room air. --23:45 Melisa Baron R.NDelmy 21:15 12/13/16. BP: 97/65 (regular adult cuff) taken on the right arm. HR: 83. RR: 18. O2 saturation: 96% on room air. --23:46 Melisa Baron R.N. DISPOSITION / DISCHARGE 21:08 12/13/16. Condition at departure: unchanged. Report was given to a nurse via a phone call. Report included patient's care, treatment, medications, reviewed medication reconcilliation, and condition (including any recent changes or anticipated changes). All questions were answered. Report was acknowledged. (ELIE Baker). Bed obtained (209). Patient's personal items include, shirt. flip flops, purse in patients possesion, cell phone with devulcanizer charger in purse, medications were sent home with friend Violette Gordon. --21:08 Melisa Baron R.N. 21:03 12/13/16. BP: 98/58 (regular adult cuff) taken on the right arm. HR: 83. RR: 14. O2 saturation: 98% on room air. Temp: 97.8 F (oral). Pain level now: 9/10. --21:08 Melisa Baron R.N. Departure time: 21:28 Dec 13 2016. ( Patient allergic to morphine, relayed this to nurse Olivia that I did not give her the morphine, patient states she can take morphine if benadryl is given with it. Report on this given to ELIE Baker). --21:28 Melisa Baron R.N. Locked/Released at 12/13/2016 23:46 by Melisa Baron R.N.
--- NOTE | 2016-12-13 19:27 | ED ORDER SUMMARY ---
..... Patient: MARJAN CATES OrderSheet [facility] VisitID: [id number] [address] [place] [address] 51y, F Registration Date/Time: 12/13/2016 ORDER SHEET Weight: 65 kg (stated) Allergies: Albuterol, Allergen, Codeine, Morphine and Related, Prochlorperazine, Zofran GENERAL ORDERS: Talent Buyer (Continuous) (CP) (17:12/13/2016 JSimbeck R.N. per protocol) (17:12 JSimbeck R.N.) Oxygen (2 L/min) (NC) (17:12/13/2016 JSimbeck R.N. per protocol) (17:12 JSimbeck R.N.) Pulse oximeter (17:12/13/2016 JSimbeck R.N. per protocol) (17:12 JSimbeck R.N.) EKG - ER Stat (17:12/13/2016 JSimbeck R.N. per protocol) (17:12 JSimbeck R.N.) Talent Buyer (Continuous) (17:12/13/2016 Ivett MENON) (17:28 KHoerner) Chest 2V Urgent (17:12/13/2016 Ivett MENON) (Ack 17:24 Bi) (Cancelled: Other17:25 Ivett MENON) Cardiac Panel Stat (17:12/13/2016 Ivett MENON) (Ack 17:24 Bi) (18:01 KHoerner) BNP Urgent (17:12/13/2016 Ivett MENON) (Ack 17:24 Bi) (18:01 KHoerner) D-Dimer Urgent (17:12/13/2016 Ivett MENON) (Ack 17:24 Bi) (18:01 SONIAoerner) Pulse oximeter (17:12/13/2016 Ivett MENON) (17:28 SONIAoerner) EKG - ER Stat (17:12/13/2016 Ivett MENON) (Cancelled: Duplicate Order17:24 Bi) Chest 1V Urgent (17:12/13/2016 Ivett MENON) (Ack 17:28 Bi) (17:33 JSimbeck R.N.) - (PIC LINE) (17:43 12/13/2016 Ivett MENON) (Ack 17:46 Bi) (18:02 Bi) EKG - ER Repeat Stat (18:02 12/13/2016 Ivett MENON) (18:16 Bi) UA-Culture if indicated Urgent (18:21 12/13/2016 Ivett MENON) (Ack 18:22 Bi) (19:25 JSanders R.N.) -- (Keppra level) (19:36 12/13/2016 Ivett MENON) (Ack 19:40 uller) (19:50 JSanders R.N.) MEDICATION ORDERS: Promethazine IV 12.5 mg (NOW) (20:55 12/13/2016 Ivett MENON) (Ack 20:56 CARMINEanders R.N.) (Cancelled: Other20:59 Ivett MENON) Promethazine IV 6.25 MG (NOW) (20:59 12/13/2016 Ivett MENON) (Ack 21:08 JSanders R.N.) (21:21 JSanders R.N.) IV FLUIDS: IV Saline Lock (17:22 12/13/2016 Ivett MENON) (Ack 19:09 JSanders R.N.) (19:22 CARMINEimbeck R.N.) LORazepam IV 0.5 mg (NOW) (19:51 12/13/2016 Ivett MENON) (Ack 19:51 CARMINEanders R.N.) (19:57 CARMINEanders R.N.) IV NS : initial bolus none -, then 250 mL/hr for 2h (NOW); Urgent (20:56 12/13/2016 Ivett MENON) (Ack 20:57 JSanders R.N.) (21:14 JSanders R.N.) Morphine IV 2 mg (NOW) (20:56 12/13/2016 Ivett MENON) (Ack 20:57 CARMINEanders R.N.) (Cancelled: [id number] CARMINEanders R.N.) ORDER SHEET NOTES: [Electronically signed by Kojo Dean MD (22:49 12/13/2016)] [Electronically signed by Melisa Baron R.N. (23:46 12/13/2016)] [Electronically locked/signed by Melisa Baron R.N. (23:46 12/13/2016)]
--- NOTE | 2016-12-13 19:27 | ED ORDER SUMMARY ---
..... Patient: MARJAN CATES OrderSheet [facility] VisitID: [id number] [address] [place] [address] 51y, F Registration Date/Time: 12/13/2016 ORDER SHEET Weight: 65 kg (stated) Allergies: Albuterol, Allergen, Codeine, Morphine and Related, Prochlorperazine, Zofran GENERAL ORDERS: Montessori Toddler Teacher (Continuous) (CP) (17:12/13/2016 JSimbeck R.N. per protocol) (17:12 JSimbeck R.N.) Oxygen (2 L/min) (NC) (17:12/13/2016 JSimbeck R.N. per protocol) (17:12 JSimbeck R.N.) Pulse oximeter (17:12/13/2016 JSimbeck R.N. per protocol) (17:12 JSimbeck R.N.) EKG - ER Stat (17:12/13/2016 JSimbeck R.N. per protocol) (17:12 JSimbeck R.N.) Montessori Toddler Teacher (Continuous) (17:12/13/2016 Ivett MENON) (17:28 KHoerner) Chest 2V Urgent (17:12/13/2016 Ivett MENON) (Ack 17:24 Bi) (Cancelled: Other17:25 Ivett MENON) Cardiac Panel Stat (17:12/13/2016 Ivett MENON) (Ack 17:24 Bi) (18:01 KHoerner) BNP Urgent (17:12/13/2016 Ivett MENON) (Ack 17:24 Bi) (18:01 KHoerner) D-Dimer Urgent (17:12/13/2016 Ivett MENON) (Ack 17:24 Bi) (18:01 SONIAoerner) Pulse oximeter (17:12/13/2016 Ivett MENON) (17:28 SONIAoerner) EKG - ER Stat (17:12/13/2016 Ivett MENON) (Cancelled: Duplicate Order17:24 Bi) Chest 1V Urgent (17:12/13/2016 Ivett MENON) (Ack 17:28 Bi) (17:33 JSimbeck R.N.) - (PIC LINE) (17:43 12/13/2016 Ivett MENON) (Ack 17:46 Bi) (18:02 Bi) EKG - ER Repeat Stat (18:02 12/13/2016 Ivett MENON) (18:16 Bi) UA-Culture if indicated Urgent (18:21 12/13/2016 Ivett MENON) (Ack 18:22 Bi) (19:25 JSanders R.N.) -- (Keppra level) (19:36 12/13/2016 Ivett MENON) (Ack 19:40 uller) (19:50 JSanders R.N.) MEDICATION ORDERS: Promethazine IV 12.5 mg (NOW) (20:55 12/13/2016 Ivett MENON) (Ack 20:56 CARMINEanders R.N.) (Cancelled: Other20:59 Ivett MENON) Promethazine IV 6.25 MG (NOW) (20:59 12/13/2016 Ivett MENON) (Ack 21:08 JSanders R.N.) (21:21 JSanders R.N.) IV FLUIDS: IV Saline Lock (17:22 12/13/2016 Ivett MENON) (Ack 19:09 JSanders R.N.) (19:22 CARMINEimbeck R.N.) LORazepam IV 0.5 mg (NOW) (19:51 12/13/2016 Ivett MENON) (Ack 19:51 CARMINEanders R.N.) (19:57 CARMINEanders R.N.) IV NS : initial bolus none -, then 250 mL/hr for 2h (NOW); Urgent (20:56 12/13/2016 Ivett MENON) (Ack 20:57 JSanders R.N.) (21:14 JSanders R.N.) Morphine IV 2 mg (NOW) (20:56 12/13/2016 Ivett MENON) (Ack 20:57 CARMINEanders R.N.) (Cancelled: [id number] CARMINEanders R.N.) ORDER SHEET NOTES: [Electronically signed by Kojo Dean MD (22:49 12/13/2016)] [Electronically signed by Melisa Baron R.N. (23:46 12/13/2016)] [Electronically locked/signed by Melisa Baron R.N. (23:46 12/13/2016)]
[2016-12-13 21:46] VITALS: BP 89/58
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
--- NOTE | 2016-12-13 23:01 | NUR ---
PT IS AGGITATED ABOUT NOT BEING GIVEN IV PAIN MEDS. PT SPOKE CLEARLY, NO SLURRING AND WAS ABLE TO BRACE HERSELF UP ON ELBOWS. WCTM.
--- NOTE | 2016-12-13 23:46 | ED MED RECONCILIATION SUMMARY ---
Patient: MARJAN CATES Medication Reconciliation Report [facility] VisitID: [id number] [address] [place] [address] 51y, F Registration Date/Time: 12/13/2016 Weight: 65 kg Height/Length: 62 in. BMI: 26.2 ALLERGIES: Albuterol, Allergen, Codeine, Morphine and Related, Prochlorperazine, Zofran The patient's Home Medications are listed below: THE FOLLOWING MEDICATIONS NEED TO BE RECONCILED: Asa 81mg day Atorvastatin Calcium Oral 80 mg, at bedtime Botox Injection, q 3 months ClonazePAM Oral 1 mg, 3x a day Cymbalta Oral 60mg day Gabapentin Oral 1200, 2x a day LamoTRIgine Oral (100 mg) 1 tablet, bid Lasix 40mg daily prn swelling Oxybutynin Chloride Oral 5 mg, 3x a day Promethazine HCl Oral 12.5 mg, 4x a day Ranitidine HCl Oral 150 mg, 2x a day TiZANidine HCl Oral 4 mg, 2x a day TraZODone HCl Oral (150 mg) 1 tablet, at bedtime Vits, b-12/ b-6/ The source(s) of the original Home Medication information: Not obtained. The following Medications were given to the patient in the Emergency Department: Lorazepam [IVP] IVP 0.5 mg, administered: 12/13/2016 7:57:00 PM IV NS IV Fluids bolus 0, then 250 mL/hr, administered: 12/13/2016 9:14:00 PM PROMETHAZINE [IVP] IVP 6.25 mg, administered: 12/13/2016 9:21:00 PM The following Medications were prescribed to the patient: None.
--- NOTE | 2016-12-13 23:46 | ED MAR SUMMARY ---
..... Medication Administration Record [facility] [address] [place] [place] [address] Patient: MARJAN CATES Visit ID: [id number] 51y, F Weight: 65.0 kg Height/Length: 62 in BMI: 26.2 ALLERGIES: Albuterol, Allergen, Codeine, Morphine and Related, Prochlorperazine, Zofran Given 19:57 12/13/2016 Melisa Baron R.N. Medication Administered: LORAZEPAM [IVP] (LORAZEPAM), Dose: 0.5 mg IVP over 1 minute(s), Site: #1 left AC. Medication Ordered: LORazepam IV 0.5 mg (NOW). Start 21:14 12/13/2016 Melisa Baron R.N., Continued Upon Transfer 21:28 12/13/2016 Melisa Baron R.N. Medication Administered: IV NS (SALINE), Dose: IV Fluids over 4 hour(s), Rate: 250 mL/hr, Dispensed: 1000 mL bag, Site: #1 left AC. Medication Ordered: IV NS : initial bolus none -, then 250 mL/hr for 2h (NOW); Urgent. Given 21:21 12/13/2016 Melisa Baron R.N. Medication Administered: PROMETHAZINE [IVP], Dose: 6.25 mg IVP over 1 minute(s), Site: #1 left AC. Medication Ordered: Promethazine IV 6.25 MG (NOW).
--- NOTE | 2016-12-13 23:46 | ED DISCHARGE INSTRUCTIONS ---
Patient: MARJAN CATES General Instructions [facility] VisitID: [id number] [address] [place] [address] 51y, F Registration Date/Time: 12/13/2016 CHEST PAIN ATYPICAL SEIZURES. (Electronically signed by Kojo Dean MD 12/13/2016 22:49)
--- NOTE | 2016-12-13 23:46 | ED MAR SUMMARY ---
..... Medication Administration Record [facility] [address] [place] [address] Patient: MARJAN CATES Visit ID: [id number] 51y, F Weight: 65.0 kg Height/Length: 62 in BMI: 26.2 ALLERGIES: Albuterol, Allergen, Codeine, Morphine and Related, Prochlorperazine, Zofran Given 19:57 12/13/2016 Melisa Baron R.N. Medication Administered: LORAZEPAM [IVP] (LORAZEPAM), Dose: 0.5 mg IVP over 1 minute(s), Site: #1 left AC. Medication Ordered: LORazepam IV 0.5 mg (NOW). Start 21:14 12/13/2016 Melisa Baron R.N., Continued Upon Transfer 21:28 12/13/2016 Melisa Baron R.N. Medication Administered: IV NS (SALINE), Dose: IV Fluids over 4 hour(s), Rate: 250 mL/hr, Dispensed: 1000 mL bag, Site: #1 left AC. Medication Ordered: IV NS : initial bolus none -, then 250 mL/hr for 2h (NOW); Urgent. Given 21:21 12/13/2016 Melisa Baron R.N. Medication Administered: PROMETHAZINE [IVP], Dose: 6.25 mg IVP over 1 minute(s), Site: #1 left AC. Medication Ordered: Promethazine IV 6.25 MG (NOW).
--- NOTE | 2016-12-13 23:46 | ED MED RECONCILIATION SUMMARY ---
Patient: MARJAN CATES Medication Reconciliation Report [facility] VisitID: [id number] [address] [place] [address] 51y, F Registration Date/Time: 12/13/2016 Weight: 65 kg Height/Length: 62 in. BMI: 26.2 ALLERGIES: Albuterol, Allergen, Codeine, Morphine and Related, Prochlorperazine, Zofran The patient's Home Medications are listed below: THE FOLLOWING MEDICATIONS NEED TO BE RECONCILED: Asa 81mg day Atorvastatin Calcium Oral 80 mg, at bedtime Botox Injection, q 3 months ClonazePAM Oral 1 mg, 3x a day Cymbalta Oral 60mg day Gabapentin Oral 1200, 2x a day LamoTRIgine Oral (100 mg) 1 tablet, bid Lasix 40mg daily prn swelling Oxybutynin Chloride Oral 5 mg, 3x a day Promethazine HCl Oral 12.5 mg, 4x a day Ranitidine HCl Oral 150 mg, 2x a day TiZANidine HCl Oral 4 mg, 2x a day TraZODone HCl Oral (150 mg) 1 tablet, at bedtime Vits, b-12/ b-6/ The source(s) of the original Home Medication information: Not obtained. The following Medications were given to the patient in the Emergency Department: Lorazepam [IVP] IVP 0.5 mg, administered: 12/13/2016 7:57:00 PM IV NS IV Fluids bolus 0, then 250 mL/hr, administered: 12/13/2016 9:14:00 PM PROMETHAZINE [IVP] IVP 6.25 mg, administered: 12/13/2016 9:21:00 PM The following Medications were prescribed to the patient: None.
--- NOTE | 2016-12-13 23:46 | ED DISCHARGE INSTRUCTIONS ---
Patient: MARJAN CATES General Instructions [facility] VisitID: [id number] [address] [place] [address] 51y, F Registration Date/Time: 12/13/2016 CHEST PAIN ATYPICAL SEIZURES. (Electronically signed by Kojo Dean MD 12/13/2016 22:49)
[2016-12-14] VITALS (10 sets, daily range): BP systolic 69–109; BP diastolic 42–76
--- NOTE | 2016-12-14 03:41 | NUR ---
DR. AVENDANO PRESENT ON UNIT. INFORMED OF PATIENTS VSS AND LOW BP, AND STATUS. NO NEW ORDERS GIVEN. WCTM.
[2016-12-14] MEDS ORDERED: CLONAZEPAM1 MG PO (03:47)
[2016-12-14] MEDS ORDERED: BOTOX100 UNIT (03:48)
[2016-12-14] MEDS ORDERED: LASIX40 MG PO (03:49)
[2016-12-14] MEDS ORDERED: TRAZODONE HCL50 MG PO (03:52)
[2016-12-14] MEDS ORDERED: DITROPAN EQUIVAL5 MG PO (03:56)
--- NOTE | 2016-12-14 04:17 | NUR ---
PT SLEEPING WELL OVERNIGHT. NO DISTRESS NOTED. VSS. BP IS LOW, AND MD IS AWARE OF BP. NO SEIZURE ACTIVITY NOTED. SEIZURE PRECAUTIONS IN PLACE. WILSON INTACT AND DRAINING. IVF INFUSING PER MD ORDER. CALL LIGHT IN REACH, BED IN LOWEST POSITION, WCTM.
--- NOTE | 2016-12-14 05:18 | History & Physical Report ---
Information Source Information Source: Self Reliability: Fair History Chief Complaint chest pain History of Present Illness The patient is a 50-year-old white female with a significant past medical history of endocarditis status post aortic/mitral valve replacement, CVA, seizure disorder, chronic pain, hypercholesterolemia, who presented to [facility] emergency department secondary to chest pain that she has been experiencing for the past 1 day. Patient claims that the pain appeared while she was lying in bed and she had never experienced this type of pain before. She descibes the pain as epigastric, with a deep gnawing sensation that radiated to her back. Patient states the pain comes and goes and has no exacerbating or alleviating factors. Patient has no other complaints including shortness of breath, pain on exertion, pain on movement or palpitations. Patient History 1. Chest pain 2. Generalized anxiety disorder 3. Cerebrovascular disease 4. UTI (urinary tract infection) 5. Hypertension 6. Neuropathy 7. Seizure disorder Social History Patient currently lives at home. She claims she lives alones however she stated to nursing that she has a caregiver. Patient stopped smoking 1 month ago and has a 35 pack year history, Patient does not drink and claims to not use any illicit substances. Family History MOTHER Diabetes FATHER Diabetes Advance Directive None Medications and Allergies Medications Home Medications aspirin 81 mg clonazepam 1 mg tid cyanocolbumin duloxetin 20 mg furosemide 40 mg daily gabapentin 1200 mg bid lamicatl 125 mg daily keppra 500 mg bid ditropan 5 mg tid promethazine 25 mg qhs tamsulosin .4 mg trazadone 150 mg qhs Current Medications Sig/Jb Start time Last Medication Dose Route Stop Time Status Admin Atorvastatin Calcium 80 MG QPM 12/14 1800 AC PO Aspirin 81 MG DAILY 12/14 899 AC PO Duloxetine HCl 60 MG DAILY 12/14 0900 AC PO Tamsulosin HCl 0.4 MG DAILY 12/14 0900 AC PO Sucralfate 1 GM ACHS 12/14 0730 AC PO Ceftriaxone Sodium/ 50 ML Q24H 12/14 0000 AC 12/13 Dextrose IV 2344 Diphenhydramine HCl 25 MG ONCE 12/13 2244 AC PO Lorazepam 1 MG Q4H PRN 12/13 2245 AC IV Morphine Sulfate 7.5 MG Q6H PRN 12/13 2245 AC PO Pantoprazole Sodium 40 MG BID 12/13 224 AC IV Baclofen 10 MG TID 12/13 2199 AC 12/13 PO 2203 Lamotrigine 100 MG BID 12/13 2099 AC 12/13 PO 2203 Levetiracetam 1,000 MG BID 12/13 2099 AC 12/13 PO 2203 Promethazine HCl 25 MG QHS 12/13 2099 AC 12/13 PO 220 Acetaminophen 650 MG Q6H PRN 12/13 2014 AC PO Clonazepam 0.5 MG TID PRN 12/13 2014 AC PO Gabapentin 600 MG TID PRN 12/13 2014 AC PO Trazodone HCl 50 MG QHS PRN 12/13 2014 AC 12/13 PO 220 Allergies Coded Allergies: Codeine (01/26/14) Droperidol (01/26/14) Metoclopramide (01/26/14) Morphine (01/25/14) Ondansetron (From ZOFRAN) (09/17/14) Phenothiazines (01/26/14) Prochlorperazine (01/26/14) Pseudoephedrine (From SUDAFED) (03/20/16) Review of Systems Constitutional Denies: Fever, Chills, Sweats, Weakness, Malaise, Other. Eyes Denies: Pain, Vision Change, Conjunctival Inflammation, Eyelid Inflammation, Redness, Other. ENT Denies: Ear Pain, Ear Discharge, Nose Pain, Nasal Discharge, Nasal Congestion, Mouth Pain, Mouth Swelling, Throat Pain, Throat Swelling, Other. Respiratory Denies: Cough, Dry, SOB w/exertion, Wheezing, Hemoptysis, Pleuritic Pain, Sputum , Other. Cardiovascular Chest Pain. Denies: Palpitations, Orthopnea, PND, Edema, Light-headedness, Other. Gastrointestinal Denies: Nausea, Vomiting, Abdominal Pain, Diarrhea, Constipation, Melena, Hematochezia, Other. Genitourinary Denies: Dysuria, Frequency, Incontinence, Hematuria, Retention, Other. Musculoskeletal Denies: Neck Pain, Shoulder Pain, Arm Pain, Back Pain, Hand Pain, Leg Pain, Foot Pain, Other. Skin Denies: Rash, Lesions, Jaundice, Bruising, Other. Neurological Denies: Weakness, Numbness, Incoordination, Change in speech, Confusion, Seizures, Other. Physical Exam Vital Signs / I&Os Vital Signs Date Time Temp Pulse Resp B/P Pulse O2 O2 Flow FiO2 Ox Delivery Rate 06/02 0216 98.6 73 16 83/49 97 Room Air 12/14 0210 Room Air 12/13 2146 97.9 79 16 89/58 97 Room Air I&O 12/13 0800 12/13 1600 12/14 0000 Intake Total 0 Output Total 650 Balance -650 General Appearance Alert, Oriented X3, No acute distress HEENT Atraumatic, Moist mucous membranes Lungs Clear to auscultation, Normal air movement Neck Supple, No masses, No thyromegaly Cardiovascular Regular rate and rhythm, Normal S1 and S2, - systolic ejection murmur Abdomen Soft, No tenderness Extremities No clubbing, No edema, Normal pulses, - strength is diminished on the left side Skin No Breakdown Neurological Normal speech, Normal tone, Cranial nerves intact Psych/Mental Status Mood normal LAB Results Laboratory Tests 12/13 12/13 12/13 12/13 1745 1745 1755 1920 Chemistry Plasma Sodium (136 - 145 mmol/L) 142 Plasma Potassium (3.5 - 5.1 mmol/L) 3.9 Plasma Chloride (98 - 107 mmol/L) 103 CO2 (Enzymatic) (21 - 32 mmol/L) 28 BUN (7 - 18 mg/dL) 9 Creatinine (0.6 - 1.3 mg/dL) 0.9 Est GFR ( Amer) (mL/min) >60 Est GFR (Non-Af Amer) (mL/min) >60 Glucose (70 - 110 mg/dL) 92 Plasma Calcium (8.5 - 10.1 mg/dL) 9.4 Plasma Magnesium (1.8 - 2.4 mg/dL) 1.9 Total Bilirubin (0.0 - 1.0 mg/dL) 0.5 AST (15 - 37 U/L) 23 ALT (12 - 78 U/L) 24 Alkaline Phosphatase (46 - 116 U/L) 137 Creatine Kinase (24 - 260 U/L) 122 Troponin (0.00 - 1.5 ng/mL) <0.05 B-Natriuretic Peptide (5 - 100 pg/ml) 65.2 Total Protein (6.4 - 8.2 g/dL) 8.4 Albumin (3.3 - 5.0 g/dL) 4.2 Coagulation D-Dimer, Quantitative (0.27 - 0.52 ug/mLFEU) 0.30 Hematology WBC (4.5 - 11.5 K/uL) 5.2 RBC (4.00 - 5.20 M/uL) 4.70 Hgb (12.0 - 16.0 gm/dL) 12.5 Hct (36.0 - 46.0 %) 37.8 MCV (80 - 100 fL) 80 MCH (26 - 34 pg) 27 RDW (11.6 - 14.8 %) 15.3 Neut % (Auto) (50 - 75 %) 60 Lymph % (Auto) (25 - 40 %) 35 [place] % (Auto) (3 - 14 %) 4 Eos % (Auto) (0 - 4 %) 1 Baso % (Auto) (0 - 2 %) 0 Band Neutrophils % (0 - 8 %) 0 Metamyelocytes % (0 - 1 %) 0 Myelocytes (0 - 1 %) 0 Other Cell Type 0 Plt Count, EDTA (150 - 400 K/uL) TNP Anisocytosis (manual) 1+ PUBS MCHC (31 - 37 g/dL) 33 Toxicology Plasma/Serum Ethyl Alc (3 - 10 mg/dL) <3 12/13 1924 Toxicology Levetiracetam Pending Urines Urine Color YELLOW Urine Appearance SL CLOUDY Urine pH (5.0 - 8.0) 5.5 Ur Specific Lee (1.010 - 1.030) 1.010 Urine Protein (NEGATIVE) NEGATIVE Urine Ketones (NEGATIVE) NEGATIVE Urine Blood (NEGATIVE) 3+ Urine Nitrite (NEGATIVE) POSITIVE Urine Bilirubin (NEGATIVE) NEGATIVE Urine Urobilinogen (0.2 - 1.0 EU/dL) 0.2 Ur Leukocyte Esterase (NEGATIVE) POSITIVE Urine RBC (0 - 1 rbc/hpf) 10-25 Urine WBC (0 - 1 wbc/hpf) 10-15 Ur Epithelial Cells (0 - 5 EPI/hpf) 0-1 Urine Bacteria (NONE SEEN) MODERATE (2+ TO 3+) Urine Glucose (NEGATIVE) NEGATIVE Urine Comment CULTURE INDICATED Microbiology Date/Time Procedure - Status Source Growth 12/13 1924 Urine Culture - RECD URINE CC Assessment and Plan Problem List 1. Chest pain Plan - patient does not have a cardiac etiology behind the chest pain - no evidence of troponemia present - eKg has been normal X 2 - given presentation and symptoms patient most likely has acid reflux - will switch to bid protonix and see if symptoms are alleviated - will monitor patient on tele 2. CVA (cerebral vascular accident) Plan - history of cva - left sided deficits - will c/w aspirin and statin 3. UTI (urinary tract infection) Plan - pt has a chronic indwelling eaton - currently patietn is experiencing some degree of pain during urination and feels the catheter which is atypical - UA is positive - will treat with Ceftriaxone 1 gram daily 4. Seizure disorder Status Chronic Onset Date Unknown Plan - pt has a known seizure disorder - pt apparently had a seizure in the ER however resolved spontaneously - will c/w anti epileptics - ativan on board for seizure prevention 5. 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 Aortic valve replaced Plan - pt has a history of aortic valve replacement - unsure to as why patient is not on any anti-coagulation - will address this with the patient
--- NOTE | 2016-12-14 07:06 | NUR ---
PT HAD $ 400 DOLLAR IN [place]. PT'S MONEY PLACED IN A BELONGINGS BAG AND SENT TO SAFE THIS AM. PT RESTING. NO DISTRESS.
--- NOTE | 2016-12-14 15:34 | NUR ---
NUTRITION ASSESSMENT: S: Pt admitted with dx/o chest pain, atypical seizures. PMH includes: chest pain, anxiety disorder, cebrovascular disease, UTI, HTN, neuropathy, seizure disorder. Spoke with nsg, pt is not exhibiting any chewing or swallowing problems and po intake is good. O: Diet Rx: Low sodium Regular Thin NKFA Wts: 67.6 kg Ht: 62.5" IBW: 60-67 kg BMI: 27 Est Kcals: ~9479-0028 kcals per day Est Pro: ~60-70 g per day Est Fluids: ~ 2.0 L per day Meds: Rev'd Labs: Rev'd Skin: Hiro Score 17; no open areas noted or reported. A: Pt po intake appears fair to poor, low sodium diet in place and appears appropriate given hx above. REv'd meds and labs. BMI; overweight, however no weight loss desired at this time until pt medically stable (see IBW ranges avove). P: Continue same
--- NOTE | 2016-12-14 17:20 | Progress Note ---
Subjective General Note Date: December 14, 2016 Admission Date: December 13, 2016 Hospital Day: 2 PCP: [facility] Status: Observation, ACU Advanced Directive: CODE Room: 209-B Admission History: The patient is a 51-year-old white female with a significant past medical history of seizure disorder, pseudoseizures, valvular heart disease status post mitral valve/aortic valve replacement, generalized anxiety disorder, urinary retention, peripheral neuropathy, hypertension, who presented to [facility] emergency department on the day of admission secondary to complaints of chest discomfort. [facility] ER evaluation was consistent with chest pain rule out reflux/GI origin versus ACS. Secondary to the above, the patient was admitted by Doroteo Murillo M.D. for further evaluation and treatment. For other history present illness, past medical history, family history, social history, review of systems, and admission physical examination please see the patient's history and physical examination and ER visit note in the patient's medical record. Subjective: The patient states her chest pain is significantly improved today. Patient placed on PPI. Previous heart catheter 2 years ago was unremarkable. We will attempt to obtain further records regarding patient's previous cardiac surgery/ cardiac catheterization Patient requests: None Medications and Allergies Medications Current Medications Sig/Jb Start time Last Medication Dose Route Stop Time Status Admin Tolterodine Tartrate 2 MG DAILY 12/15 0900 AC PO Ceftriaxone Sodium/ 50 ML QHS 12/14 2100 AC Dextrose IV Trazodone HCl 150 MG QHS 12/14 2100 AC PO Atorvastatin Calcium 80 MG QPM 12/14 1800 AC PO Aspirin 81 MG DAILY 12/14 0900 AC 12/14 PO 0928 Duloxetine HCl 60 MG DAILY 12/14 0900 AC 12/14 PO 0928 Pantoprazole Sodium 40 MG PPIBID 12/14 0900 AC 12/14 IV 0929 Tamsulosin HCl 0.4 MG DAILY 12/14 0900 AC 12/14 PO 0928 Sucralfate 1 GM ACHS 12/14 0730 AC 12/14 PO 1249 Oxybutynin Chloride 5 MG TID 12/14 0600 AC 12/14 PO 12/14 2330 1402 Furosemide 40 MG DAILY PRN 12/14 0530 AC PO Lorazepam 1 MG Q4H PRN 12/13 2245 AC IV Morphine Sulfate 7.5 MG Q6H PRN 12/13 2245 AC 12/14 PO 0929 Baclofen 10 MG TID 12/13 2199 AC 12/14 PO 1249 Lamotrigine 100 MG BID 12/13 2099 AC 12/14 PO 0928 Levetiracetam 1,000 MG BID 12/13 2099 AC 12/14 PO 09 Promethazine HCl 25 MG QHS 12/13 2099 AC 12/13 PO 220 Acetaminophen 650 MG Q6H PRN 12/13 2014 AC PO Clonazepam 0.5 MG TID PRN 12/13 2014 AC 12/14 PO 0542 Gabapentin 600 MG TID PRN 12/13 2014 AC 12/14 PO 0928 Allergies Coded Allergies: Codeine (01/26/14) Droperidol (01/26/14) Metoclopramide (01/26/14) Morphine (01/25/14) Ondansetron (From ZOFRAN) (09/17/14) Phenothiazines (01/26/14) Prochlorperazine (01/26/14) Pseudoephedrine (From SUDAFED) (03/20/16) Physical Exam Vital Signs / I&Os Vital Signs Date Time Temp Pulse Resp B/P Pulse O2 O2 Flow FiO2 Ox Delivery Rate 12/14 1618 86 20 93/63 99 Room Air 12/14 1543 88 18 109/76 98 Room Air 12/14 1540 87 18 98/68 97 Room Air 12/14 1535 98.4 78 18 94/67 96 Room Air 12/14 1201 79/53 12/14 1157 98.4 75 17 69/42 97 Room Air 12/14 0945 Room Air 12/14 0649 98.1 77 19 76/48 93 Room Air 12/14 0216 98.6 73 16 83/49 97 Room Air 12/14 0210 Room Air 12/13 2146 97.9 79 16 89/58 97 Room Air I&O 12/14 0000 12/13 1600 12/13 0800 Intake Total 0 Output Total 650 Balance -650 General Appearance Alert, Oriented X3, Cooperative, No acute distress Lungs Clear to auscultation, Normal air movement Cardiovascular Regular rate and rhythm, Normal S1 and S2, murmur unchanged, no HJR JVD appreciated Abdomen Normal bowel sounds, Soft, No tenderness, No guarding Extremities No cyanosis, No clubbing Neurological Cranial nerves intact Psych/Mental Status Mental status normal, Mood normal LAB Results Laboratory Tests 12/14 12/14 12/14 12/13 0720 5642 2244 0507 Chemistry Plasma Sodium (136 - 145 mmol/L) 145 Plasma Potassium (3.5 - 5.1 mmol/L) 3.9 Plasma Chloride (98 - 107 mmol/L) 109 CO2 (Enzymatic) (21 - 32 mmol/L) 25 BUN (7 - 18 mg/dL) 9 Creatinine (0.6 - 1.3 mg/dL) 0.8 Est GFR ( Amer) (mL/min) >60 Est GFR (Non-Af Amer) (mL/min) >60 Glucose (70 - 110 mg/dL) 80 Plasma Calcium (8.5 - 10.1 mg/dL) 8.6 Plasma Magnesium (1.8 - 2.4 mg/dL) 2.0 Total Bilirubin (0.0 - 1.0 mg/dL) 0.3 AST (15 - 37 U/L) 24 ALT (12 - 78 U/L) 21 Alkaline Phosphatase (46 - 116 U/L) 112 Troponin (0.00 - 1.5 ng/mL) <0.05 Total Protein (6.4 - 8.2 g/dL) 6.8 Albumin (3.3 - 5.0 g/dL) 3.4 Coagulation INR (0.8 - 1.2) 1.1 Hematology WBC (4.5 - 11.5 K/uL) 3.6 RBC (4.00 - 5.20 M/uL) 4.23 Hgb (12.0 - 16.0 gm/dL) 10.9 Hct (36.0 - 46.0 %) 34.4 MCV (80 - 100 fL) 81 MCH (26 - 34 pg) 26 RDW (11.6 - 14.8 %) 15.9 Gran % (53 - 90) 52.4 Lymph % (Auto) (25 - 40 %) 42.4 [place] % (Auto) (3 - 14 %) 5.2 Plt Count, EDTA (150 - 400 K/uL) 173 PUBS MCHC (31 - 37 g/dL) 32 Toxicology Levetiracetam Pending Urines Urine Color YELLOW Urine Appearance SL CLOUDY Urine pH (5.0 - 8.0) 5.5 Ur Specific [place] (1.010 - 1.030) 1.010 Urine Protein (NEGATIVE) NEGATIVE Urine Ketones (NEGATIVE) NEGATIVE Urine Blood (NEGATIVE) 3+ Urine Nitrite (NEGATIVE) POSITIVE Urine Bilirubin (NEGATIVE) NEGATIVE Urine Urobilinogen (0.2 - 1.0 EU/dL) 0.2 Ur Leukocyte Esterase (NEGATIVE) POSITIVE Urine RBC (0 - 1 rbc/hpf) 10-25 Urine WBC (0 - 1 wbc/hpf) 10-15 Ur Epithelial Cells (0 - 5 EPI/hpf) 0-1 Urine Bacteria (NONE SEEN) MODERATE (2+ TO 3+) Urine Glucose (NEGATIVE) NEGATIVE Urine Comment CULTURE INDICATED 12/13 12/13 12/13 12/13 1920 1755 1745 1745 Chemistry Plasma Sodium (136 - 145 mmol/L) 142 Plasma Potassium (3.5 - 5.1 mmol/L) 3.9 Plasma Chloride (98 - 107 mmol/L) 103 CO2 (Enzymatic) (21 - 32 mmol/L) 28 BUN (7 - 18 mg/dL) 9 Creatinine (0.6 - 1.3 mg/dL) 0.9 Est GFR ( Amer) (mL/min) >60 Est GFR (Non-Af Amer) (mL/min) >60 Glucose (70 - 110 mg/dL) 92 Plasma Calcium (8.5 - 10.1 mg/dL) 9.4 Plasma Magnesium (1.8 - 2.4 mg/dL) 1.9 Total Bilirubin (0.0 - 1.0 mg/dL) 0.5 AST (15 - 37 U/L) 23 ALT (12 - 78 U/L) 24 Alkaline Phosphatase (46 - 116 U/L) 137 Creatine Kinase (24 - 260 U/L) 122 Troponin (0.00 - 1.5 ng/mL) <0.05 B-Natriuretic Peptide (5 - 100 pg/ml) 65.2 Total Protein (6.4 - 8.2 g/dL) 8.4 Albumin (3.3 - 5.0 g/dL) 4.2 Coagulation D-Dimer, Quantitative (0.27 - 0.52 ug/mLFEU) 0.30 Hematology WBC (4.5 - 11.5 K/uL) 5.2 RBC (4.00 - 5.20 M/uL) 4.70 Hgb (12.0 - 16.0 gm/dL) 12.5 Hct (36.0 - 46.0 %) 37.8 MCV (80 - 100 fL) 80 MCH (26 - 34 pg) 27 RDW (11.6 - 14.8 %) 15.3 Neut % (Auto) (50 - 75 %) 60 Lymph % (Auto) (25 - 40 %) 35 [place] % (Auto) (3 - 14 %) 4 Eos % (Auto) (0 - 4 %) 1 Baso % (Auto) (0 - 2 %) 0 Band Neutrophils % (0 - 8 %) 0 Metamyelocytes % (0 - 1 %) 0 Myelocytes (0 - 1 %) 0 Other Cell Type 0 Plt Count, EDTA (150 - 400 K/uL) TNP Anisocytosis (manual) 1+ PUBS MCHC (31 - 37 g/dL) 33 Toxicology Plasma/Serum Ethyl Alc (3 - 10 mg/dL) <3 Microbiology Date/Time Procedure - Status Source Growth 12/13 1924 Urine Culture - RES URINE CC Assessment and Plan Problem List 1. Chest pain Plan -Patient with findings of atypical chest pain -Symptoms improved status post initiation of twice a day IV PPI. -Monitor -Symptoms inconsistent with cardiac origin -Probable discharge in a.m. 2. Hypotension Status Acute Onset Date Unknown Plan -Patient was noted to have mild hypotension this a.m. -Resolved with use of normal saline 500 cc -Monitor -No changes in medical therapy at this time Current status: Fair, improved Anticipated discharge date: Anticipated discharge in a.m. Anticipated discharge placement: Home Patient care time: Time spent in chart review, patient interview, physical exam, CPOE, and care documentation: 25 minutes Visit to patient today: 2 Complexity of care: Moderate E&M Codes Rounding: Obsv-Comp/Moderate/[id number]
--- NOTE | 2016-12-14 19:02 | DIAGNOSTIC IMAGING REPORT ---
PROCEDURE: CT HEAD WITHOUT CONTRAST INDICATION: Found down. Headache. TECHNIQUE: Noncontrast axial images with sagittal and coronal reformations. COMPARISON: Compared to a head CT studies on 07/10/2016 and 04/21/2016 FINDINGS: Status post left frontal craniotomy. There are old infarcts in the right douglass radiata and left posterior frontal lobe. There is a 9 mm hyperdense area in the left posterior limb internal capsule, most likely representing a telangiectasia or cavernous hemangioma. No evidence of an acute process or hemorrhage. Sinuses and mastoids are normal. IMPRESSION: 1. Status post left frontal craniotomy. 2. Old right douglass radiata and left posterior frontal lobe infarcts. 3. 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 4. No evidence of acute process. 5. Findings discussed with Dr. Doroteo Murillo. P head CT. 2. Findings discussed with at hours. All CT scans at this facility use dose modulation, iterative reconstruction, and/or weight-based dosing when appropriate to reduce radiation dose to as low as reasonably achievable.
--- NOTE | 2016-12-14 19:45 | NUR ---
PT SLEEPING IN BED. NO DISTRESS NOTED. IV WNL AND IVF INFUSING. BED IN LOWEST POSITION, BED ALARM IS ON. WILL FULLY ASSESS PATIENT WHEN PT IS AWAKE.
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
--- NOTE | 2016-12-14 21:40 | NUR ---
PT RESTING IN BED, NO DISTRESS NOTED. PT ALERT AND ORIENTED, COOPERATIVE WITH CARE. PT ABLE TO FOLLOW COMMANDS, AND ANSWER QUESTIONS APPROPRIATELY. PT DENIES ANY CHEST PAIN, SOB, NAUSEA, AND VOMITING. PT STATES SHE HAS AN ACHY FEELING IN HER EPIGASTIC AREA. PT STATES SHE HAS PAIN IN HER NECK, AND LEFT HIP. RN OFFERED ICE PACK OR WARM BLANKET, AND PT DECLINED. IV INTACT IN THE LAC, WNL, FLUSHED WELL. WILSON PATENT, AND DRAINING YELLOW SLIGHTLY CLOUDY URINE. BED ALARM IS ON, SEIZURE PADS IN PLACE. NO SEIZURE ACTIVITY NOTED. VSS. BED IN LOWEST POSITION, CALL LIGHT IN REACH, WCTM.
--- NOTE | 2016-12-15 04:06 | NUR ---
PT CARE TRANSFERRED TO THIS RN AT 0330. PT RESTING COMFORTABLY IN BED. AGREE WITH PREVIOUS AUDIO VISUAL SECRETARY.
[2016-12-15 06:49] VITALS: BP 70/44
--- NOTE | 2016-12-15 08:06 | Progress Note ---
Subjective General Note Date: December 15, 2016 Admission Date: December 13, 2016 Hospital Day: 3 PCP: [facility] Status: Observation, ACU Advanced Directive: FULL CODE Room: 209-B Admission History: The patient is a 51-year-old white female with a significant past medical history of seizure disorder, pseudoseizures, valvular heart disease status post mitral valve/aortic valve replacement, generalized anxiety disorder, urinary retention, peripheral neuropathy, hypertension, who presented to [facility] emergency department on the day of admission secondary to complaints of chest discomfort. [facility] ER evaluation was consistent with chest pain rule out reflux/GI origin versus ACS. Secondary to the above, the patient was admitted by Doroteo Murillo M.D. for further evaluation and treatment. For other history present illness, past medical history, family history, social history, review of systems, and admission physical examination please see the patient's history and physical examination and ER visit note in the patient's medical record. Subjective: The patient states she is doing well at this time. Chest pain much improved. No specific complaints. Eating well. Ambulating. Patient requests: None Medications and Allergies Medications Current Medications Sig/Jb Start time Last Medication Dose Route Stop Time Status Admin Tolterodine Tartrate 2 MG DAILY 12/15 0900 AC PO Ceftriaxone Sodium/ 50 ML QHS 12/14 2100 AC 12/14 Dextrose IV 2032 Trazodone HCl 150 MG QHS 12/14 2100 AC 12/14 PO 2032 Atorvastatin Calcium 80 MG QPM 12/14 1800 AC 12/14 PO 1734 Aspirin 81 MG DAILY 12/14 0900 AC 12/14 PO 09 Duloxetine HCl 60 MG DAILY 12/14 0900 AC 12/14 PO 927 Pantoprazole Sodium 40 MG PPIBID 12/14 0900 AC 12/15 IV 0604 Tamsulosin HCl 0.4 MG DAILY 12/14 0900 AC 12/14 PO 0928 Sucralfate 1 GM ACHS 12/14 0730 AC 12/14 PO 2032 Furosemide 40 MG DAILY PRN 12/14 0530 AC PO Lorazepam 1 MG Q4H PRN 12/13 2245 AC IV Morphine Sulfate 7.5 MG Q6H PRN 12/13 2245 AC 12/14 PO 1735 Baclofen 10 MG TID 12/13 2200 AC 12/15 PO 06 Lamotrigine 100 MG BID 062099 AC 12/14 PO 2031 Levetiracetam 1,000 MG BID 12/13 2099 AC 12/14 PO 2031 Promethazine HCl 25 MG QHS 12/13 2099 AC 12/14 PO 2031 Acetaminophen 650 MG Q6H PRN 12/13 2014 AC PO Clonazepam 0.5 MG TID PRN 12/13 2014 AC 12/14 PO 173 Gabapentin 600 MG TID PRN 12/13 2014 AC 12/14 PO 173 Allergies Coded Allergies: Codeine (Severe, 12/15/16) Droperidol (Severe, 12/15/16) Metoclopramide (Severe, 12/15/16) Ondansetron (From ZOFRAN) (Severe, 12/15/16) Phenothiazines (Severe, 12/15/16) Prochlorperazine (Severe, 12/15/16) Pseudoephedrine (From SUDAFED) (Severe, 12/15/16) Physical Exam Vital Signs / I&Os Vital Signs Date Time Temp Pulse Resp B/P Pulse O2 O2 Flow FiO2 Ox Delivery Rate 12/15 0649 96.8 60 16 70/44 92 Room Air 0.0 12/14 2126 99.0 84 18 93/63 100 Room Air 12/14 2039 Room Air 12/14 1816 98.1 91 18 89/57 96 Room Air 12/14 1618 86 20 93/63 99 Room Air 12/14 1543 88 18 109/76 98 Room Air 12/14 1540 87 18 98/68 97 Room Air 12/14 1535 98.4 78 18 94/67 96 Room Air 12/14 1201 79/53 12/14 1157 98.4 75 17 69/42 97 Room Air 12/14 0945 Room Air I&O 12/15 0000 12/14 1600 12/14 0800 Intake Total 480 980 481 Output Total 700 130 250 Balance -220 850 231 General Appearance Alert, Oriented X3, Cooperative, No acute distress Lungs Clear to auscultation, Normal air movement Cardiovascular Regular rate and rhythm, Normal S1 and S2 Abdomen Normal bowel sounds, Soft, No tenderness Extremities No cyanosis, No clubbing Psych/Mental Status Mental status normal, Mood normal LAB Results Laboratory Tests 12/15 0735 Chemistry Plasma Sodium (136 - 145 mmol/L) 143 Plasma Potassium (3.5 - 5.1 mmol/L) 3.9 Plasma Chloride (98 - 107 mmol/L) 107 CO2 (Enzymatic) (21 - 32 mmol/L) 29 BUN (7 - 18 mg/dL) 11 Creatinine (0.6 - 1.3 mg/dL) 0.9 Est GFR ( Amer) (mL/min) >60 Est GFR (Non-Af Amer) (mL/min) >60 Glucose (70 - 110 mg/dL) 98 Plasma Calcium (8.5 - 10.1 mg/dL) 8.5 Hematology WBC (4.5 - 11.5 K/uL) 4.5 RBC (4.00 - 5.20 M/uL) 4.21 Hgb (12.0 - 16.0 gm/dL) 11.2 Hct (36.0 - 46.0 %) 34.1 MCV (80 - 100 fL) 81 MCH (26 - 34 pg) 27 RDW (11.6 - 14.8 %) 15.3 Neut % (Auto) (50 - 75 %) 57.5 Lymph % (Auto) (25 - 40 %) 29.2 [place] % (Auto) (3 - 14 %) 5.7 Eos % (Auto) (0 - 4 %) 7.1 Baso % (Auto) (0 - 2 %) 0.5 PUBS MCHC (31 - 37 g/dL) 33 Assessment and Plan Problem List 1. Chest pain Plan -Resolved -Troponin/EKG within normal limits -Appears to represent reflux symptomatology 2. Hypotension Status Acute Onset Date Unknown Plan -Resolved -DC Flomax -Outpatient follow-up with PCP 3. Atypical seizure Plan -No subsequent seizures since admission -Outpatient follow-up with PCP 4. GERD (gastroesophageal reflux disease) Status Acute Onset Date Unknown Plan -symptoms much improved status post initiation of PPIs -Discharge to home today on Protonix 40 mg by mouth daily -Outpatient follow-up with PCP 5. UTI (urinary tract infection) Plan -Patient with findings of bacteria with chronic indwelling Cantu -No systemic symptoms -No medical treatment at this time Current status: Fair, improved Anticipated discharge date: Today Anticipated discharge placement: Home Patient care time: Time in chart review, patient interview, physical exam, CPOE, and care documentation: 30 mins Visit to patient today: 2 Complexity of care: Moderate For other recommendations regarding discharge diet, activity, followup, and discharge medications please see the patient's discharge instructions. Greater than 30 min. was spent in the patient's discharge preparation including discharge interview and physical examination, progress note, discharge instructions, and discharge summary E&M Codes Discharge: Observation - [id number]
[2016-12-15 10:24] VITALS: BP 98/71
[2016-12-15 10:56] VITALS: BP 100/72
--- NOTE | 2016-12-15 11:02 | NUR ---
B/P 70/[address] DR COSTA NOTIFIED AND NEW ORDERS RECEIVED. 500cc NS BOLUS GIVEN AND B/P INCREASED TO 100/72. PT READING HER BIBLE, PLEASANT AND COOPERATIVE. WILL GET HER OOB FOR LUNCH AND ASSESS VSS, STRENGTH AND LEVEL OF CONSCIOUSNESS.
[2016-12-15] MEDS ORDERED: PROTONIX40 MG PO (13:20)
--- NOTE | 2016-12-15 13:21 | Provider's Discharge Care Plan ---
Problem, Goal, Plan Problem List 1. GERD (gastroesophageal reflux disease) Goals: Improve disease control, Prevent disease progress Instructions: Follow up as directed, Take meds as directed
--- NOTE | 2016-12-15 13:21 | Provider's Discharge Care Plan ---
Problem, Goal, Plan Problem List 1. GERD (gastroesophageal reflux disease) Goals: Improve disease control, Prevent disease progress Instructions: Follow up as directed, Take meds as directed
--- NOTE | 2016-12-15 13:25 | Discharge Summary ---
Discharge Summary Report Admit Date 12/13/16 Discharge Date 12/15/16 Admission Diagnosis 1. Chest pain-rule out ACS Discharge Diagnosis 1. Chest pain-ACS ruled out 2. Gastroesophageal reflux 3. Bacteriuria 4. Hypotension-transient Brief History The patient is a 51-year-old white female with a significant past medical history of seizure disorder, pseudoseizures, valvular heart disease status post mitral valve/aortic valve replacement, generalized anxiety disorder, urinary retention, peripheral neuropathy, hypertension, who presented to [facility] emergency department on the day of admission secondary to complaints of chest discomfort. [facility] ER evaluation was consistent with chest pain rule out reflux/GI origin versus ACS. Secondary to the above, the patient was admitted by Doroteo Murillo M.D. for further evaluation and treatment. For other history present illness, past medical history, family history, social history, review of systems, and admission physical examination please see the patient's history and physical examination and ER visit note in the patient's medical record. Hospital Course The following problems and their management were noted during the patient's hospitalization: 1. Chest pain-ACS ruled out The patient was admitted with findings of chest pain. Her symptoms were typical of reflux symptomatology. She was placed on Protonix 40 mg IV twice a day with almost complete resolution of her symptoms prior to discharge. Serial troponin and EKG were unremarkable. Previous cardiac catheterization showed no evidence of coronary artery disease. 2. Gastroesophageal reflux Patient presents with findings of gastroesophageal reflux. She had been treated in the past with H2 blockers. She was changed to PPIs noted above with resolution of symptoms. She was discharged on Protonix 40 mg by mouth daily. 3. Bacteriuria The patient does have findings of UTI. She has chronic indwelling Cantu. She had no systemic symptoms during her hospital stay. She was afebrile without leukocytosis. She will undergo no further treatment for her bacteriuria. She has been instructed to follow-up with her PCP should she develop fever, chills, back pain or other systemic signs associated with UTI. 4. Hypotension The patient was noted to have mild hypertension during her hospital stay. This was felt to be medication related. Her Flomax was withheld. She received IV fluid bolus with normalization of blood pressure prior to discharge. Outpatient follow-up with PCP. General Appearance Alert, Oriented X3, Cooperative, No acute distress Lungs Clear to auscultation, Normal air movement Cardiovascular Regular Rate, Normal S1, Normal S2, Gallops, Rubs Abdomen Normal bowel sounds, Soft, No tenderness Psych/Mental Status Mental status NL, Mood NL Lab/Imaging Laboratory Tests 12/15 0735 Chemistry Plasma Sodium (136 - 145 mmol/L) 143 Plasma Potassium (3.5 - 5.1 mmol/L) 3.9 Plasma Chloride (98 - 107 mmol/L) 107 CO2 (Enzymatic) (21 - 32 mmol/L) 29 BUN (7 - 18 mg/dL) 11 Creatinine (0.6 - 1.3 mg/dL) 0.9 Est GFR ( Amer) (mL/min) >60 Est GFR (Non-Af Amer) (mL/min) >60 Glucose (70 - 110 mg/dL) 98 Plasma Calcium (8.5 - 10.1 mg/dL) 8.5 Hematology WBC (4.5 - 11.5 K/uL) 4.5 RBC (4.00 - 5.20 M/uL) 4.21 Hgb (12.0 - 16.0 gm/dL) 11.2 Hct (36.0 - 46.0 %) 34.1 MCV (80 - 100 fL) 81 MCH (26 - 34 pg) 27 RDW (11.6 - 14.8 %) 15.3 Neut % (Auto) (50 - 75 %) 57.5 Lymph % (Auto) (25 - 40 %) 29.2 [place] % (Auto) (3 - 14 %) 5.7 Eos % (Auto) (0 - 4 %) 7.1 Baso % (Auto) (0 - 2 %) 0.5 PUBS MCHC (31 - 37 g/dL) 33 Discharge Instructions/Meds For other recommendations regarding discharge diet, activity, followup, and discharge medications please see the patient's discharge instructions. Discharge condition: Fair, improved Greater than 30 min. was spent in the patient's discharge preparation including discharge interview and physical examination, progress note, discharge instructions, and discharge summary The patient was interviewed and examined on the day of discharge. E&M Codes Discharge: Observation - All/[id number]
[2016-12-15] MEDS ORDERED: MORPHINE SULFAT15 M2 PO (14:21)
[2016-12-15 14:30] VITALS: BP 98/69
--- NOTE | 2016-12-15 17:10 | NUR ---
QUESTIONS AND CONCERNS ANSWERED. RX'S GONE OVER WITH PT. PT BELONGINGS GIVEN BACK TO PT BY ROTARY ENGRAVER. IV DC'D INTACT. PT LEFT VIA WC AT 1700 W/ CHEMIST INSTRUMENTATION AND FRIEND AT HER SIDE.
== END 2016-12-15 17:00 | disposition home or self-care (01) ==
LOC: ED SRH 16:21 → ACUTE2 SRH 19:43 → TRANS SRH 19:43 → ACUTE2 SRH 21:32
PROVIDERS: ADMIT Internal Medicine
DX: R07.9 Chest pain, unspecified (principal); G40.802 Other epilepsy, not intractable, without status epilepticus; T83.511A Infection and inflammatory reaction due to indwelling urethral catheter, initial encounter; N39.0 Urinary tract infection, site not specified; I95.9 Hypotension, unspecified; I10 Essential (primary) hypertension; I69.954 Hemiplegia and hemiparesis following unspecified cerebrovascular disease affecting left non-dominant side; G62.9 Polyneuropathy, unspecified; F41.1 Generalized anxiety disorder; Z95.2 Presence of prosthetic heart valve; Z87.891 Personal history of nicotine dependence
CPT/HCPCS: 29230; 29243; 29247; 29263; 90004; 90047; 90074; 90100; 90148; 90469; 90616; 91320; 91429; 91556; 91643; 92010; 92610; 92720; 94060; 95059

== ENCOUNTER 2016-12-18 11:51 | Emergency (ER) | payer OTHER ==
[~2016-12-18 11:51] MED LIST changes: +BOTOX100 UNIT; +DITROPAN EQUIVAL5 MG PO; +LASIX40 MG PO; +MORPHINE SULFAT15 M2 PO; +PROTONIX40 MG PO
--- NOTE | 2016-12-18 13:43 | DIAGNOSTIC IMAGING REPORT ---
PROCEDURE: XR ANKLE 3 OR 4 VIEWS - LEFT INDICATION: TRAUMA/INJURY TECHNIQUE: Four views. COMPARISON: None. FINDINGS: Nondisplaced fracture of the lateral malleolus. There is a small avulsion fracture off the tip of the medial malleolus. The ankle mortise is intact. IMPRESSION: 1. Nondisplaced lateral malleolar fracture. Avulsion fracture off the tip of the medial malleolus.
--- NOTE | 2016-12-18 13:44 | DIAGNOSTIC IMAGING REPORT ---
PROCEDURE: XR FEMUR - LEFT INDICATION: TRAUMA/INJURY TECHNIQUE: AP and lateral views. COMPARISON: None. FINDINGS: Osseous structures are normal. IMPRESSION: 1. Normal left femur.
--- NOTE | 2016-12-18 13:44 | DIAGNOSTIC IMAGING REPORT ---
PROCEDURE: XR FEMUR - LEFT INDICATION: TRAUMA/INJURY TECHNIQUE: AP and lateral views. COMPARISON: None. FINDINGS: Osseous structures are normal. IMPRESSION: 1. Normal left femur.
--- NOTE | 2016-12-18 13:45 | DIAGNOSTIC IMAGING REPORT ---
PROCEDURE: XR KNEE 4 VIEWS - LEFT INDICATION: TRAUMA/INJURY TECHNIQUE: Four views. COMPARISON: None. FINDINGS: Osseous structures and joint spaces are normal. IMPRESSION: 1. Normal left knee.
--- NOTE | 2016-12-18 13:46 | DIAGNOSTIC IMAGING REPORT ---
PROCEDURE: XR PELVIS 1 OR 2 VIEWS INDICATION: TRAUMA/INJURY TECHNIQUE: AP view. COMPARISON: None. FINDINGS: Osseous structures are normal. IMPRESSION: 1. Normal pelvis.
--- NOTE | 2016-12-18 13:46 | DIAGNOSTIC IMAGING REPORT ---
PROCEDURE: XR PELVIS 1 OR 2 VIEWS INDICATION: TRAUMA/INJURY TECHNIQUE: AP view. COMPARISON: None. FINDINGS: Osseous structures are normal. IMPRESSION: 1. Normal pelvis.
--- NOTE | 2016-12-18 13:55 | ED NURSING NOTES ---
Clinical Report - Nurses [facility] [address] [place] [address] 12/18/2016 11:53 Patient: MARJAN CATES TRIAGE Triage time 12:03. Chief Complaint: INJURY TO LEFT KNEE, LEFT ANKLE and LEFT FOOT. INJURY TO THE LEFT HIP. Alert. SEPSIS SCREEN: Sepsis Screen: negative. Negative (no infection suspected/documented). STEFANIE COMA SCORE: Stefanie Coma Scale: 15- eyes open spontaneously (4); best verbal response- oriented x 4 (5); best motor response- obeys commands (6). --12:16 Deirdre Bravo R.N. 12:12/18/16. BP: 108/90. HR: 81. RR: 20. O2 saturation: 100%. Temp: 98 F. Pain level now: 04/23. --12:16 Deirdre Bravo R.N. Acuity: LEVEL 2. --12:16 Deirdre Bravo R.N. 12:12/18/16. BP: 108/90. HR: 81. RR: 20. O2 saturation: 100%. Temp: 98 F. Pain level now: 04/23. --12:17 Deirdre Bravo R.N. Weight: 63.5 kg stated. Height/Length: 62 inches Per Patient. BMI: 25.6. --12:13 Deirdre Bravo R.N. Medications Asa 81mg day. Atorvastatin Calcium Oral 80 mg, at bedtime. Botox Injection, q 3 months . ClonazePAM Oral 1 mg, 3x a day. Cymbalta Oral 60mg day. Gabapentin Oral 1200, 2x a day. LamoTRIgine Oral (Tablet Dispersible 100 mg) 1 tablet, bid. Lasix 40mg daily prn swelling. Oxybutynin Chloride Oral 5 mg, 3x a day. Promethazine HCl Oral 12.5 mg, 4x a day as needed. TiZANidine HCl Oral 4 mg, 2x a day. TraZODone HCl Oral (Tablet 150 mg) 1 tablet, at bedtime. Vits, b-12/ b-6/ . --12:09 Deirdre Bravo R.N. Protonix Oral 20 mg, daily. --12:10 Deirdre Bravo R.N. Medication/allergy information source: the patient. --12:16 Deirdre Bravo R.N. Allergies Albuterol. Allergen. Codeine. Morphine and Related. Prochlorperazine. Zofran. --12:09 Deirdre Bravo R.N. History Arrived by EMS. Historian: patient. Primary physician (glynn). This occurred just prior to arrival. Mechanism of injury: fell while walking; lost balance (Going to the bathroom.). Treatment BELT SEWER: EMS treatment BELT SEWER verbally communicated. See EMS report. BP: 140 / 98. HR: 98. RR: 20. O2 saturation: 98 % room air. Upon arrival patient awake. On backboard. (clamshell, removed once in the bed.). PAST MEDICAL HX: Tetanus status: unknown. The patient is post-menopausal. SOCIAL HX: Light tobacco smoker (cigarette)- less than 1/2 a pack per day. No alcohol use or drug use. FALL RISK ASSESSMENT: Fall risk assessment completed. No fall risk identified. NUTRITIONAL RISK ASSESSMENT: The nutritional risk assessment revealed no deficiencies. FUNCTIONAL ASSESSMENT: Functional assessment: no impairments noted. LEARNING NEEDS ASSESSMENT: The learning needs assessment revealed no barriers. SKIN INTEGRITY ASSESSMENT: Skin integrity risk assessment completed. No skin integrity risk identified. --12:16 Deirdre Bravo R.N. PROBLEMS: Normal Exam. CVA - Cerebrovascular Accident. Seizure. Changed Mental Status. Diabetes Mellitus. Seizure Disorder. Dental Pain. Dental Caries. Abscess. Strep Throat. UTI - Urinary Tract Infection. Migraine Headache. Intracranial Mass. Folliculitis. AK. Fall. Contusion. Rib Fracture. Tetanus Status. Pulmonary Embolism. Headache. Neurogenic bladder. LNMP - Last Normal Menstrual Period. Chest Pain. Abnormal EKG. Immunizations. Endometriosis. Fibromyalgia. Neuropathy. Diabetes Mellitus Type 2. TIA - Transient Ischemic Attack. Endocarditis. --12:12 Deirdre Bravo R.N. CVA - Cerebrovascular Accident [RuleOut]. Angina [RuleOut]. Acute Myocardial Infarction [RuleOut]. --12:12 Deirdre Bravo R.N. ADDITIONAL SURGERIES: Aortic valve replacement. Appendectomy. Cholecystectomy. Craniotomy. . Laparoscopy. Mitral valvuloplasty. --12:12 Deirdre Bravo R.N. Interventions ID band on patient. To room. --12:16 Deirdre Bravo R.N. PHYSICAL ASSESSMENT To room via stretcher. Patient gowned. GENERAL / NEURO / PSYCH: Oriented X 4. Alert. Appears anxious. EXTREMITIES: Left hip: tenderness. Left knee: tenderness. Left leg: tenderness. Left ankle: tenderness. ( neurogenic bladder from cva, indwelling cath). SKIN: Skin intact. Skin is warm and dry. --12:18 Deirdre Bravo R.N. NURSING PROGRESS NOTES Extremity elevated. Patient gowned. Two patient identifiers checked. Call light placed in reach. Side rails up x 2. Bed placed in lowest position. Brakes of bed on. Patient ready for evaluation. --12:18 Deirdre Bravo R.N. 12:18 12/18/16. BP: 108/90. HR: 79. RR: 10. O2 saturation: 100% on room air. --12:19 Deirdre Bravo R.N. ( Patient stated, I have a pain dr and wear patches for the pain, and ms 7.5mg tabs. Took ms last night".). --12:36 Deirdre Bravo R.N. 12:29 12/18/2016 Site #1 started via IV in the right upper arm with an 18g angiocath, with aseptic technique and good blood return; one attempt. Blood drawn: cultures x1. Labeled in the presence of the patient. Saline lock flushed with 10 mL saline (right basilic. lactate drawn without tourniquet. Ultrasound guidance x30 minutes). --12:44 Weston Frye R.N. ( 600 cc urine emptied from cath. bag.). --12:50 Alyx Tellez ER Tech1 13:17 12/18/2016 Morphine IVP 4 mg given over 1 minute(s) via site #1. Allergies verified, confirmed 5 rights and sedative warning given to the patient. IV patency established. IV site checked: no pain, redness, or swelling. IV flushed thoroughly pre- and post-medication administration. IVP given by RN. --13:17 Deirdre Bravo R.N. Patient returned from radiology by stretcher with tech. --13:37 Deirdre Bravo R.N. 13:35 12/18/16. BP: 108/78 taken on the left arm, while lying. HR: 79. RR: 14. O2 saturation: 98% on room air. --13:37 Deirdre Bravo R.N. Short leg and stirrup posterior fiberglass lower extremity splint applied to left leg, ankle and foot by tech. Distal pulses intact, sensation intact and motor within normal limits. --14:24 Alyx Tellez, Tech1 The patient reports no complaints and she is calm and resting quietly. --14:32 Weston Frye R.N. ( Pt is ready to be discharged, however she states her friend will be coming to pick her up after she gets off of work. Pt is unsure what time that will be. Awaiting ride for patient). --14:36 Weston Frye R.N. 14:00 12/18/2016 Fentanyl IVP 75 mcg given over 1 minute(s) via site #1. Allergies verified, confirmed 5 rights and sedative warning given to the patient. IV patency established. IV site checked: no pain, redness, or swelling. IV flushed thoroughly pre- and post-medication administration. IVP given by RN. --15:08 Deirdre Bravo R.N. 15:51 12/18/2016 Dilaudid (HYDROmorphone HCl PF) IVP 1 mg given over 1 minute(s) via site #1. Allergies verified, confirmed 5 rights and sedative warning given to the patient. IV patency established. IV site checked: no pain, redness, or swelling. IV flushed thoroughly pre- and post-medication administration. IVP given by RN. --15:51 Deirdre Bravo R.N. ( Ambulance called for transport home.). --15:51 Deirdre Bravo R.N. 16:20 12/18/2016 Site #1 removed upon discharge. Catheter intact. Bandaid applied. --16:35 Deirdre Bravo R.N. 16:36 12/18/16. BP: 122/72 taken on the left arm, while lying. HR: 85. RR: 18. O2 saturation: 98% on room air. Temp: deferred. Pain level now: 12/22. 15:15 12/18/16. BP: 110/72. HR: 69. RR: 20. O2 saturation: 98% on room air. 13:35 12/18/16. BP: 108/78 taken on the left arm, while lying. HR: 79. RR: 14. O2 saturation: 98% on room air. 12:18 12/18/16. BP: 108/90. HR: 79. RR: 10. O2 saturation: 100% on room air. 12:12/18/16. BP: 108/90. HR: 81. RR: 20. O2 saturation: 100%. Temp: 98 F. Pain level now: 04/23. --16:41 Deirdre Bravo R.N. DISPOSITION / DISCHARGE 17:00. Condition at departure: improved. No learning barriers present. Discharge instructions provided and reviewed with the patient. Reviewed medication(s) side effects, precautions, dosing and course information. Prescription(s) given to the patient. Patient verbalized understanding. Written instructions provided in Irish. The patient was discharged home and accompanied by metal burrer. She left the Emergency Department via ambulance and on a stretcher. Medication list reviewed and validated. --17:08 Deirdre Bravo R.N. 16:36 12/18/16. BP: 122/72 taken on the left arm, while lying. HR: 85. RR: 18. O2 saturation: 98% on room air. Temp: deferred. Pain level now: 12/22. 15:15 12/18/16. BP: 110/72. HR: 69. RR: 20. O2 saturation: 98% on room air. 13:35 12/18/16. BP: 108/78 taken on the left arm, while lying. HR: 79. RR: 14. O2 saturation: 98% on room air. 12:12/18/16. BP: 108/90. HR: 79. RR: 10. O2 saturation: 100% on room air. 12:12/18/16. BP: 108/90. HR: 81. RR: 20. O2 saturation: 100%. Temp: 98 F. Pain level now: 04/23. --17:08 Deirdre Bravo R.N. Locked/Released at 12/18/2016 17:09 by Deirdre Bravo R.N.
--- NOTE | 2016-12-18 13:55 | ED CLINICAL REPORT ---
Clinical Report - Physicians/Mid Levels [facility] [address] [place] [address] 12/18/2016 11:53 Patient: MARJAN CATES Time Seen: 1155. Arrived- By ambulance. Historian- patient and EMS personnel. HISTORY OF PRESENT ILLNESS Chief Complaint: FALL. Location of injuries- (left hip, knee, and ankle). The injury occurred just prior to arrival. Fell. Occurred at home. The patient complains of severe pain. No blow to the head, neck pain or loss of consciousness. Not dazed. (no other injuries noted. no preceding symptoms. states she tripped.). REVIEW OF SYSTEMS All systems otherwise negative, except as recorded above. PAST HISTORY See nurses notes. Tetanus immunization status is up-to-date. SOCIAL HISTORY Never smoker. No alcohol use or drug use. No recent travel. Is a local resident. PHYSICAL EXAM Appearance: Alert. Oriented X3. Patient in mild distress. (non-toxic). Head: Head non-tender. No swelling of head. No Mishra's sign or raccoon eyes. Eyes: Pupils equal, round and reactive to light. Pupillary exam: Right pupil 4mm, round and reactive to light directly and consensually and with accommodation. Left pupil: 4mm, round and reactive to light directly and consensually and with accommodation. EOM intact. Neck: Painless ROM. Non-tender. CVS: Heart sounds normal. Pulses normal. Respiratory: Breath sounds normal. Chest nontender. Abdomen: No visible injury. Soft and nontender. Bowel sounds normal. Back: No tenderness. ROM normal. Skin: Skin intact. Skin warm and dry. Normal skin color. Normal skin turgor. Extremities: (ecchymosis to the medial aspect the left ankle. Mild amount of swelling. DP and PT pulses are intact and symmetrical the contralateral side. No other abnormalities noted. Compartments are soft. Patient is able to wiggle toes. Patient is nontender. Patient does have tenderness to the left knee anteriorly. No increased swelling. No bony abnormalities. Knee is ligamentously stable. Patient does have a significant amount of pain however and exam is somewhat limited. He has significant pain with log rolling of the leg on the left. Patient also with scars at the lateral proximal hip as well as distal medial thigh. Appears be consistent with prior surgery. Pelvis is stable. No signs of trauma noted on extremity examination. Compartments are soft. Capillary refill is less than 3 seconds. Sensation is intact.). Neuro: Stefanie Coma Scale: 9- eyes open spontaneously (4); best verbal response- oriented x 3 (5). Oriented X 3. No motor deficit. LABS, X-RAYS, AND EKG Pelvis X-ray: (PROCEDURE: XR PELVIS 1 OR 2 VIEWS INDICATION: TRAUMA/INJURY TECHNIQUE: AP view. COMPARISON: None. FINDINGS: Osseous structures are normal. IMPRESSION: 1. Normal pelvis.). The X-rays were independently viewed by me and interpreted by the radiologist. The X-rays were discussed with the radiologist (via pacs). Lt Femur X-ray: (PROCEDURE: XR FEMUR - LEFT INDICATION: TRAUMA/INJURY TECHNIQUE: AP and lateral views. COMPARISON: None. FINDINGS: Osseous structures are normal. IMPRESSION: 1. Normal left femur.). The X-rays were independently viewed by me and interpreted by the radiologist. The X-rays were discussed with the radiologist (via pacs). Lt Knee X-ray: (PROCEDURE: XR KNEE 4 VIEWS - LEFT INDICATION: TRAUMA/INJURY TECHNIQUE: Four views. COMPARISON: None. FINDINGS: Osseous structures and joint spaces are normal. IMPRESSION: 1. Normal left knee.). The X-rays were independently viewed by me and interpreted by the radiologist. The X-rays were discussed with the radiologist (via pacs). Lt Ankle X-ray: (PROCEDURE: XR ANKLE 3 OR 4 VIEWS - LEFT INDICATION: TRAUMA/INJURY TECHNIQUE: Four views. COMPARISON: None. FINDINGS: Nondisplaced fracture of the lateral malleolus. There is a small avulsion fracture off the tip of the medial malleolus. The ankle mortise is intact. IMPRESSION: 1. Nondisplaced lateral malleolar fracture. Avulsion fracture off the tip of the medial malleolus.). The X-rays were independently viewed by me and interpreted by the radiologist. The X-rays were discussed with the radiologist (via pacs). PROGRESS AND PROCEDURES Splint Application: Fiberglass splint applied to left ankle. Splint applied by tech with direct supervision by me and the ED physician. Reassessed extremity following splint application. Neurovascular intact. Follow-up recommended within 5 days. Patient has a walker at home. three-way short-leg splint. Course of Care: the patient is 46-year-old female presenting for evaluation of left lower extremity and hip pain. Patient without signs of neurovascular compromise. Skin is intact. Pulses are 2+ and symmetrical to the contralateral side. Patient with ecchymosis to medial aspect of the left ankle. Be concern for fracture dislocation. Patient is agreeable to the treatment plan. Pain medication as been provided. Do not fill any other imaging is warranted at this time. No signs of trauma to the head or neck. Patient is otherwise appropriate. No neurovascular compromise. Radiographsdo not show any fractures of the patient's pelvis, femur, or knee. No dislocations noted. Patient does have afracture of the lateral malleolus an avulsion fracture of the medial malleolus. Patient was splinted in the emergency department. Repeat examination of the extremity is reassuring. No signs of compartment syndrome. Had a discussion with the patient as well as the patient's daughter about the workup here in the emergency department including diagnosis, home care, follow-up, and return precautions. All questions have been answered. The patient and patient's daughter expressed understanding of these instructions and was agreeable to them. Recommended patient follow up with orthopedic surgery for continued monitoring and care for the lateral malleolus fracture. Pain medication as been provided. The nursing staff was able to speak to the patient's social human services assistants who is concerned about the patient's potential abuse for pain medication. Because the patient has apparently then released from to pain medicine clinics, would be concern for opiate abuse. Patient overdoes have an acute fracture and will likely need pain medication. Prescription provided here in the emergency department. Explained my concerns for narcotic prescriptions the patient. Patient expressed understanding of these concerns. Disposition: Discharged. Condition: good. CLINICAL IMPRESSION Closed non-displaced left bimalleolar fracture (acute). Multiple contusions to the left thigh and left knee. INSTRUCTIONS Warnings: SEDATIVE MEDICATION: You were given sedative medication during your visit. Do not drive or operate dangerous machinery. CONTROLLED SUBSTANCE WARNINGS. GENERAL WARNINGS: Return or contact your physician immediately if your condition worsens or changes unexpectedly, if not improving as expected, or if other problems arise. SPECIFICALLY, return if you develop weakness, numbness, tingling, pain or incontinence. Prescription Medications: OxyIR 5 mg capsules: take 1 orally every 6 hours as needed for pain. Dispense twenty (20). No refill. bedside commode. disp 1. no refills. Follow-up: Return to the emergency department as needed. Follow up with your doctor in three days. Reason for referral: recheck today's concerns. Summary of care provided to patient via paper. Screening today revealed the patient's blood pressure to be in the normal range. The patient should follow up with a primary care provider for blood pressure management. Understanding of the discharge instructions verbalized by patient. Follow-up with: [facility], , , [address], , [place], [id number] Follow up in five days. Reason for referral: recheck today's concerns. Summary of care provided to patient via paper. (Electronically signed by Wei Moeller Dr. 12/19/2016 11:35)
--- NOTE | 2016-12-18 13:55 | ED ORDER SUMMARY ---
..... Patient: MARJAN CATES OrderSheet [facility] VisitID: [id number] [address] [place] [address] 51y, F Registration Date/Time: 12/18/2016 ORDER SHEET Weight: 63.5 kg (stated) Allergies: Albuterol, Allergen, Codeine, Morphine and Related, Prochlorperazine, Zofran GENERAL ORDERS: Hip 2V Left w AP Pelvis Urgent (11:58 12/18/2016 Elin Turcios) (Ack 12:00 PWeiler ER Tech1) (13:14 SRoberts R.N.) (Cancelled: Duplicate Order13:14 Elin Turcios) Femur Left Urgent (11:58 12/18/2016 Elin uTrcios) (Ack 12:00 PWeiler ER Tech1) (13:14 SRoberts R.N.) Knee 4V Left Urgent (11:59 12/18/2016 Elin Turcios) (Ack 12:00 PWeiler ER Tech1) (13:14 SRoberts R.N.) Ankle 3 or 4V Left Urgent (11:59 12/18/2016 Elin Turcios) (Ack 12:00 PWeiler ER Tech1) (13:14 SRoberts R.N.) Pelvis 1 or 2V Urgent (13:14 12/18/2016 Elin Turcios) (Ack 13:16 PWeiler ER Tech1) (15:08 SRoberts R.N.) Splint (LE) (Left) (three way) (13:47 12/18/2016 Elin Turcios) (Ack 14:01 SRoberts R.N.) (14:23 LNations ER Tech1) MEDICATION ORDERS: IV FLUIDS: Morphine IV 4 mg (HIGH ALERT MEDICATION, NOW) (12:03 12/18/2016 Elin Turcios) (13:17 SRoberts R.N.) IV Saline Lock (12:03 12/18/2016 Elin Turcios) (12:44 KWilliams R.N.) Fentanyl IV 75 mcg (once now) (13:55 12/18/2016 Elin Turcios) (15:08 SRoberts R.N.) Dilaudid IV 1 mg (HIGH ALERT MEDICATION, NOW) (15:35 12/18/2016 Elin Turcios) (15:51 Nita Kruse) ORDER SHEET NOTES: [Electronically signed by Deirdre Bravo R.N. (17:09 12/18/2016)] [Electronically signed by Wei Moeller Dr. (11:35 12/19/2016)] [Electronically locked/signed by Deirdre Bravo R.N. (17:09 12/18/2016)]
--- NOTE | 2016-12-18 13:55 | ED ORDER SUMMARY ---
..... Patient: MARJAN CATES OrderSheet [facility] VisitID: [id number] [address] [place] [address] 51y, F Registration Date/Time: 12/18/2016 ORDER SHEET Weight: 63.5 kg (stated) Allergies: Albuterol, Allergen, Codeine, Morphine and Related, Prochlorperazine, Zofran GENERAL ORDERS: Hip 2V Left w AP Pelvis Urgent (11:58 12/18/2016 Elin Turcios) (Ack 12:00 PWeiler ER Tech1) (13:14 SRoberts R.N.) (Cancelled: Duplicate Order13:14 Elin Turcios) Femur Left Urgent (11:58 12/18/2016 Elin Turcios) (Ack 12:00 PWeiler ER Tech1) (13:14 SRoberts R.N.) Knee 4V Left Urgent (11:59 12/18/2016 Elin Turcios) (Ack 12:00 PWeiler ER Tech1) (13:14 SRoberts R.N.) Ankle 3 or 4V Left Urgent (11:59 12/18/2016 Elin Turicos) (Ack 12:00 PWeiler ER Tech1) (13:14 SRoberts R.N.) Pelvis 1 or 2V Urgent (13:14 12/18/2016 Elin Turcios) (Ack 13:16 PWeiler ER Tech1) (15:08 SRoberts R.N.) Splint (LE) (Left) (three way) (13:47 12/18/2016 Elin Turcios) (Ack 14:01 SRoberts R.N.) (14:23 LNations ER Tech1) MEDICATION ORDERS: IV FLUIDS: Morphine IV 4 mg (HIGH ALERT MEDICATION, NOW) (12:03 12/18/2016 Elin Turcios) (13:17 SRoberts R.N.) IV Saline Lock (12:03 12/18/2016 Elin Turcios) (12:44 KWilliams R.N.) Fentanyl IV 75 mcg (once now) (13:55 12/18/2016 Elin Turcios) (15:08 SRoberts R.N.) Dilaudid IV 1 mg (HIGH ALERT MEDICATION, NOW) (15:35 12/18/2016 Elin Turcios) (15:51 Nita Kruse) ORDER SHEET NOTES: [Electronically signed by Deirdre Bravo R.N. (17:09 12/18/2016)] [Electronically signed by Wei Moeller Dr. (11:35 12/19/2016)] [Electronically locked/signed by Deirdre Bravo R.N. (17:09 12/18/2016)]
--- NOTE | 2016-12-19 11:36 | ED MED RECONCILIATION SUMMARY ---
Patient: MARJAN CATES Medication Reconciliation Report [facility] VisitID: [id number] [address] [place] [address] 51y, F Registration Date/Time: 12/18/2016 Weight: 63.5 kg Height/Length: 62 in. BMI: 25.6 ALLERGIES: Albuterol, Allergen, Codeine, Morphine and Related, Prochlorperazine, Zofran The patient's Home Medications are listed below: THE FOLLOWING MEDICATIONS NEED TO BE RECONCILED: Asa 81mg day Atorvastatin Calcium Oral 80 mg, at bedtime Botox Injection, q 3 months ClonazePAM Oral 1 mg, 3x a day Cymbalta Oral 60mg day Gabapentin Oral 1200, 2x a day LamoTRIgine Oral (100 mg) 1 tablet, bid Lasix 40mg daily prn swelling Oxybutynin Chloride Oral 5 mg, 3x a day Promethazine HCl Oral 12.5 mg, 4x a day Protonix Oral 20 mg, daily TiZANidine HCl Oral 4 mg, 2x a day TraZODone HCl Oral (150 mg) 1 tablet, at bedtime Vitmichel, b-12/ b-6/ The source(s) of the original Home Medication information: patient The following Medications were given to the patient in the Emergency Department: Morphine [IVP] IVP 4 mg, administered: 12/18/2016 1:17:00 PM Fentanyl [IVP] IVP 75 mcg, administered: 12/18/2016 2:00:00 PM Dilaudid [IVP] IVP 1 mg, administered: 12/18/2016 3:51:00 PM The following Medications were prescribed to the patient: bedside commode. disp 1. no refills. -- Wei Moeller Dr. OxyIR 5 mg capsules: take 1 orally every 6 hours as needed for pain. Dispense twenty (20). No refill. -- Wei Moeller Dr.
--- NOTE | 2016-12-19 11:36 | ED MED RECONCILIATION SUMMARY ---
Patient: MARJAN CATES Medication Reconciliation Report [facility] VisitID: [id number] [address] [place] [address] 51y, F Registration Date/Time: 12/18/2016 Weight: 63.5 kg Height/Length: 62 in. BMI: 25.6 ALLERGIES: Albuterol, Allergen, Codeine, Morphine and Related, Prochlorperazine, Zofran The patient's Home Medications are listed below: THE FOLLOWING MEDICATIONS NEED TO BE RECONCILED: Asa 81mg day Atorvastatin Calcium Oral 80 mg, at bedtime Botox Injection, q 3 months ClonazePAM Oral 1 mg, 3x a day Cymbalta Oral 60mg day Gabapentin Oral 1200, 2x a day LamoTRIgine Oral (100 mg) 1 tablet, bid Lasix 40mg daily prn swelling Oxybutynin Chloride Oral 5 mg, 3x a day Promethazine HCl Oral 12.5 mg, 4x a day Protonix Oral 20 mg, daily TiZANidine HCl Oral 4 mg, 2x a day TraZODone HCl Oral (150 mg) 1 tablet, at bedtime Vitmichel, b-12/ b-6/ The source(s) of the original Home Medication information: patient The following Medications were given to the patient in the Emergency Department: Morphine [IVP] IVP 4 mg, administered: 12/18/2016 1:17:00 PM Fentanyl [IVP] IVP 75 mcg, administered: 12/18/2016 2:00:00 PM Dilaudid [IVP] IVP 1 mg, administered: 12/18/2016 3:51:00 PM The following Medications were prescribed to the patient: bedside commode. disp 1. no refills. -- Wei Moeller Dr. OxyIR 5 mg capsules: take 1 orally every 6 hours as needed for pain. Dispense twenty (20). No refill. -- Wei Moeller Dr.
--- NOTE | 2016-12-19 11:36 | ED MAR SUMMARY ---
..... Medication Administration Record [facility] [address] [place] [address] Patient: MARJAN CATES Visit ID: [id number] 51y, F Weight: 63.5 kg Height/Length: 62 in BMI: 25.6 ALLERGIES: Albuterol, Allergen, Codeine, Morphine and Related, Prochlorperazine, Zofran Given 13:17 12/18/2016 Deirdre Bravo R.N. Medication Administered: MORPHINE [IVP], Dose: 4 mg IVP over 1 minute(s), Site: #1 right upper arm. Medication Ordered: Morphine IV 4 mg (HIGH ALERT MEDICATION, NOW). Given 14:00 12/18/2016 Deirdre Bravo R.N. Medication Administered: FENTANYL [IVP], Dose: 75 mcg IVP over 1 minute(s), Site: #1 right upper arm. Medication Ordered: Fentanyl IV 75 mcg (once now). Given 15:51 12/18/2016 Deirdre Bravo R.N. Medication Administered: DILAUDID [IVP] (HYDROMORPHONE HCL PF), Dose: 1 mg IVP over 1 minute(s), Site: #1 right upper arm. Medication Ordered: Dilaudid IV 1 mg (HIGH ALERT MEDICATION, NOW).
--- NOTE | 2016-12-19 11:36 | ED MAR SUMMARY ---
..... Medication Administration Record [facility] [address] [place] [address] Patient: MARJAN CATES Visit ID: [id number] 51y, F Weight: 63.5 kg Height/Length: 62 in BMI: 25.6 ALLERGIES: Albuterol, Allergen, Codeine, Morphine and Related, Prochlorperazine, Zofran Given 13:17 12/18/2016 Deirdre Bravo R.N. Medication Administered: MORPHINE [IVP], Dose: 4 mg IVP over 1 minute(s), Site: #1 right upper arm. Medication Ordered: Morphine IV 4 mg (HIGH ALERT MEDICATION, NOW). Given 14:00 12/18/2016 Deirdre Bravo R.N. Medication Administered: FENTANYL [IVP], Dose: 75 mcg IVP over 1 minute(s), Site: #1 right upper arm. Medication Ordered: Fentanyl IV 75 mcg (once now). Given 15:51 12/18/2016 Deirdre Bravo R.N. Medication Administered: DILAUDID [IVP] (HYDROMORPHONE HCL PF), Dose: 1 mg IVP over 1 minute(s), Site: #1 right upper arm. Medication Ordered: Dilaudid IV 1 mg (HIGH ALERT MEDICATION, NOW).
--- NOTE | 2016-12-19 11:36 | ED DISCHARGE INSTRUCTIONS ---
Patient: MARJAN CATES General Instructions [facility] VisitID: [id number] [address] [place] [address] 51y, F Registration Date/Time: 12/18/2016 Closed non-displaced left bimalleolar fracture (acute). Multiple contusions to the left thigh and left knee. INSTRUCTIONS Warnings: SEDATIVE MEDICATION: You were given sedative medication during your visit. Do not drive or operate dangerous machinery. CONTROLLED SUBSTANCE WARNINGS. GENERAL WARNINGS: Return or contact your physician immediately if your condition worsens or changes unexpectedly, if not improving as expected, or if other problems arise. SPECIFICALLY, return if you develop weakness, numbness, tingling, pain or incontinence. Prescription Medications: OxyIR 5 mg capsules: take 1 orally every 6 hours as needed for pain. Dispense twenty (20). No refill. bedside commode. disp 1. no refills. Follow-up: Return to the emergency department as needed. Follow up with your doctor in three days. Reason for referral: recheck today's concerns. Summary of care provided to patient via paper. Screening today revealed the patient's blood pressure to be in the normal range. The patient should follow up with a primary care provider for blood pressure management. Understanding of the discharge instructions verbalized by patient. Follow-up with: [facility], , , [address], , [place], [id number] Follow up in five days. Reason for referral: recheck today's concerns. Summary of care provided to patient via paper. ADDITIONAL INFORMATION Contusion,Soft Tissue You have a CONTUSION, which is a bruise with swelling and some bleeding under the skin. There are no broken bones. This injury takes a few days to a few weeks to heal. Home Care: 1) Keep the injured part elevated to reduce pain and swelling. This is especially important during the first 48 hours. 2) Make an ice pack (ice cubes in a plastic bag, wrapped in a towel) and apply for 20 minutes every 1-2 hours the first day. Continue this 3-4 times a day until the pain and swelling goes away. 3) You may use acetaminophen (Tylenol) or ibuprofen (Motrin, Advil) to control pain, unless another pain medicine was prescribed. [ NOTE : If you have chronic liver or kidney disease or ever had a stomach ulcer or GI bleeding, talk with your doctor before using these medicines.] Follow Up with your doctor or this facility if you are not improving within the next THREE days. [NOTE: If X-rays were taken, they will be reviewed by a radiologist. You will be notified of any new findings that may affect your care.] Get Prompt Medical Attention if any of the following occur: -- Pain or swelling increases -- Injured arm or leg becomes cold, blue, numb or tingly -- Redness, warmth or drainage from the skin Fracture:Ankle You have a break (fracture) of the ankle. This causes local pain, swelling and sometimes bruising. A fracture is treated with a splint or cast or special boot. It will take about 4-6 weeks for the fracture to heal. Surgery may be needed to fix severe injuries. Home Care: You will be given a splint, cast or boot to prevent movement at the ankle joint. Unless you were told otherwise, use crutches or a walker and do not bear weight on the injured leg until cleared by your doctor to do so. (Crutches and walkers can be rented at many pharmacies and surgical/orthopedic supply stores). Do not put weight on a splint; it will break. Keep your leg elevated to reduce pain and swelling. When sleeping, place a pillow under the injured leg. When sitting, support the injured leg so it is level with your waist. This is very important during the first 48 hours. Apply an ice pack (ice cubes in a plastic bag, wrapped in a towel) over the injured area for 20 minutes every 1-2 hours the first day. You can place the ice pack directly over the splint/cast. Continue with ice packs 3-4 times a day for the next two days, then as needed for the relief of pain and swelling. Keep the cast/splint/boot completely dry at all times. Bathe with your cast/splint/boot out of the water, protected with a large plastic bag, rubber-banded at the top end. If a boot or fiberglass cast/splint gets wet, you can dry it with a hair-dryer. You may use acetaminophen (Tylenol) or ibuprofen (Motrin, Advil) to control pain, unless another pain medicine was prescribed. [ NOTE : If you have chronic liver or kidney disease or ever had a stomach ulcer or GI bleeding, talk with your doctor before using these medicines.] Follow Up with your doctor in one week, or as advised by our staff, to be sure the bone is healing properly. If you were given a splint, it may be changed to a cast at your follow-up visit. [NOTE: A radiologist will review any X-rays that were taken. We will notify you of any new findings that may affect your care.] Get Prompt Medical Attention If Any Of The Following Occur: The plaster cast or splint becomes wet or soft The fiberglass cast or splint remains wet for more than 24 hours Increased tightness or pain under the cast or splint Toes become swollen, cold, blue, numb or tingly Oxycodone Hydrochloride, Acetaminophen Oral tablet What is this medicine? ACETAMINOPHEN; OXYCODONE (a set a JOVON johana fen; ox i KOE done) is a pain reliever. It is used to treat mild to moderate pain. How should I use this medicine? Take this medicine by mouth with a full glass of water. Follow the directions on the prescription label. Take your medicine at regular intervals. Do not take your medicine more often than directed. Talk to your clip riveter regarding the use of this medicine in children. Special care may be needed. Patients over 65 years old may have a stronger reaction and need a smaller dose. What side effects may I notice from receiving this medicine? Side effects that you should report to your doctor or health small animal caretaker as soon as possible: allergic reactions like skin rash, itching or hives, swelling of the face, lips, or tongue breathing difficulties, wheezing confusion light headedness or fainting spells severe stomach pain yellowing of the skin or the whites of the eyes Side effects that usually do not require medical attention (report to your doctor or health small animal caretaker if they continue or are bothersome): dizziness drowsiness nausea vomiting What may interact with this medicine? alcohol antihistamines barbiturates like amobarbital, butalbital, butabarbital, methohexital, pentobarbital, phenobarbital, thiopental, and secobarbital benztropine drugs for bladder problems like solifenacin, trospium, oxybutynin, tolterodine, hyoscyamine, and methscopolamine drugs for breathing problems like ipratropium and tiotropium drugs for certain stomach or intestine problems like propantheline, homatropine methylbromide, glycopyrrolate, atropine, belladonna, and dicyclomine general anesthetics like etomidate, ketamine, nitrous oxide, propofol, desflurane, enflurane, halothane, isoflurane, and sevoflurane medicines for depression, anxiety, or psychotic disturbances medicines for sleep muscle relaxants naltrexone narcotic medicines (opiates) for pain phenothiazines like perphenazine, thioridazine, chlorpromazine, mesoridazine, fluphenazine, prochlorperazine, promazine, and trifluoperazine scopolamine tramadol trihexyphenidyl What if I miss a dose? If you miss a dose, take it as soon as you can. If it is almost time for your next dose, take only that dose. Do not take double or extra doses. Where should I keep my medicine? Keep out of the reach of children. This medicine can be abused. Keep your medicine in a safe place to protect it from theft. Do not share this medicine with anyone. Selling or giving away this medicine is dangerous and against the law. Store at room temperature between 20 and 25 degrees C (68 and 77 degrees F). Keep container tightly closed. Protect from light. This medicine may cause accidental overdose and if it is taken by other adults, children, or pets. Flush any unused medicine down the toilet to reduce the chance of harm. Do not use the medicine after the expiration date. What should I tell my health care provider before I take this medicine? They need to know if you have any of these conditions: brain tumor Crohn's disease, inflammatory bowel disease, or ulcerative colitis drink more than 3 alcohol containing drinks per day drug abuse or addiction head injury heart or circulation problems kidney disease or problems going to the bathroom liver disease lung disease, asthma, or breathing problems an unusual or allergic reaction to acetaminophen, oxycodone, other opioid analgesics, other medicines, foods, dyes, or preservatives or trying to get breast-feeding What should I watch for while using this medicine? Tell your doctor or health small animal caretaker if your pain does not go away, if it gets worse, or if you have new or a different type of pain. You may develop tolerance to the medicine. Tolerance means that you will need a higher dose of the medication for pain relief. Tolerance is normal and is expected if you take this medicine for a long time. Do not suddenly stop taking your medicine because you may develop a severe reaction. Your body becomes used to the medicine. This does NOT mean you are addicted. Addiction is a behavior related to getting and using a drug for a non-medical reason. If you have pain, you have a medical reason to take pain medicine. Your doctor will tell you how much medicine to take. If your doctor wants you to stop the medicine, the dose will be slowly lowered over time to avoid any side effects. You may get drowsy or dizzy. Do not drive, use machinery, or do anything that needs mental alertness until you know how this medicine affects you. Do not stand or sit up quickly, especially if you are an older patient. This reduces the risk of dizzy or fainting spells. Alcohol may interfere with the effect of this medicine. Avoid alcoholic drinks. There are different types of narcotic medicines (opiates) for pain. If you take more than one type at the same time, you may have more side effects. Give your health care provider a list of all medicines you use. Your doctor will tell you how much medicine to take. Do not take more medicine than directed. Call emergency for help if you have problems breathing. The medicine will cause constipation. Try to have a bowel movement at least every 2 to 3 days. If you do not have a bowel movement for 3 days, call your doctor or health small animal caretaker. Do not take Tylenol (acetaminophen) or medicines that have acetaminophen with this medicine. Too much acetaminophen can be very dangerous. Many nonprescription medicines contain acetaminophen. Always read the labels carefully to avoid taking more acetaminophen. You have been given the following additional information: Contusion, Soft Tissue Fracture, Ankle (General) Oxycodone Hydrochloride, Acetaminophen Oral tablet (Electronically signed by Wei Moeller Dr. 12/19/2016 11:35)
== END 2016-12-18 17:00 | disposition home or self-care (01) ==
LOC: ED SRH 11:51
DX: S82.845A Nondisplaced bimalleolar fracture of left lower leg, initial encounter for closed fracture (principal); S70.12XA Contusion of left thigh, initial encounter; S80.02XA Contusion of left knee, initial encounter; W19.XXXA Unspecified fall, initial encounter; Y93.9 Activity, unspecified; Y99.9 Unspecified external cause status; Y92.009 Unspecified place in unspecified non-institutional (private) residence as the place of occurrence of the external cause